=== PATIENT | male | born 1980 | race Caucasian/White ===

== ENCOUNTER 2023-04-07 15:07 | Outpatient (OUT) | payer OTHER, SELFPAY ==
--- NOTE | 2023-04-07 15:55 | CONS_ITS ---
CONSULTATION DATE: ??04/07/2023 TO:? Ganga Pastrana M.D. CHIEF COMPLAINT:? Includes severe mid back/upper back pain. HISTORY:? He reports the pain as being 5-7/10 pain, sharp in character with a pressure component.? It has gotten worse over the last 10 days after he was doing really vigorous activity.? This happened approximately 10 days ago.? Since that time, his pain has been gradually improving, but he still reports it does alter his quality of life, level of functioning and his sleep pattern, but he reports improvement.? Denies any change in bowel and bladder habits or new sensorimotor changes in the lower extremities. EXAM:? His examination is notable for the patient having no clinical radiculopathy or myelopathy involving his lower extremities.? He had no pain with thoracolumbar facet joint loading maneuvers.? He had a moderate amount of myofascial spasm involving the lower thoracic iliocostalis muscle.? He had nothing to suggest compression fracture on clinical exam today.? IMPRESSION:? Our impression is patient appears to have chronic pain, recent flare secondary to thoracic sprain/strain type injury.? RECOMMENDATIONS:? At this point, I recommend continuing with his current regimen of tramadol 50 mg t.i.d. which he takes infrequently, Flexeril 10 mg at h.s. and diclofenac 75 b.i.d.? I have instructed him to increase his Flexeril as tolerated and if needed over the next 7-10 days, until his pain symptoms in his lower thoracic area improve.? We will see him back in the office in one month?s time or sooner if needed. As part of providing excellent, safe, comprehensive care, the following was completed at our patient's visit: 1. A medication reconciliation and review to ensure accurate knowledge of current/active medications, including asking our patients to inform us about any [id number] medications or herbal remedies/nutritional supplements/alternative remedies. 2. A review to specifically ensure our patients have had annual screening for: elevated body mass index (BMI, see intake chart for exact total), tobacco use, screening for depression, and screening for unhealthy alcohol use.? When screening is concerning, patients are provided with education and the specific recommendation to discuss the concerning health issue and treatment options with their primary care provider. GISELLE
== END 2023-04-07 15:08 | disposition home or self-care (01) ==
LOC: PM 15:15
PROVIDERS: PCP Family Medicine; Visit Provider Anesthesiology Pain Medicine
DX: G89.29 Other chronic pain (principal); S23.3XXA Sprain of ligaments of thoracic spine, initial encounter
CPT/HCPCS: G0463

== ENCOUNTER 2023-07-07 15:21 | Outpatient (OUT) | payer OTHER, SELFPAY ==
--- NOTE | 2023-07-07 15:29 | P.CN_ITS ---
Consult Note: HPI Data of Consult Patient: known to practice within the last 3 years Requesting Physician: DEJAH GARCIA NP Primary Care Provider: VIGNESH PRAKASH Consult Narrative Reason for consult: f/u Narrative: Alonzo campo pleasant 42 year old male presents for evaluation and management of chronic low back pain. Today pain 3/10. Pain and muscle cramps have worsened over the last week, feels medication regimen works well. Not interested in additional lumbar RFAs at this time cc:: CC: DEJAH GARCIA NP Review of Systems ROS Status of ROS 10 or more systems reviewed and unremarkable except as noted in history and below Musculoskeletal Reports: back pain PFSH PFS Medical History Meds Home Medications and Allergies Home Medications Medication Instructions Recorded Confirmed Type cyclobenzaprine 10 mg tablet 10 mg PO DAILY PRN muscle spasm 05/27/23 Rx #30 tabs diclofenac sodium 75 mg 75 mg PO BID PRN pain #60 tabs 05/27/23 Rx tablet,delayed release Exam Constitutional Documenting provider has reviewed patient's vital signs: yes Common normals: no apparent distress, oriented x3, healthy appearing, alert and well nourished General appearance: cooperative HENMT Common normals: normocephalic, hearing grossly normal bilaterally and moist oral mucous membranes Head and scalp: normocephalic Eye Common normals: PERRL Pupil: PERRL Neck & C-Spine Common normals: full ROM General: normal visual inspection Chest Common normals: inspection of chest normal Respiratory Common normals: normal respiratory effort, no retractions and no use of accessory muscles Back & Pelvis Lumbar spine/lower back: ROM limited, pain with ROM, lumbar spinal tenderness and paraspinal muscle tenderness Sacroiliac joints: SI joints normal Other: predominately axial low back pain without radiculopathy Neuro Common normals: oriented x3, CN's II-XII intact bilaterally, moves all extremities, no focal motor deficits, no sensory deficits noted and deep tendon reflexes 2+ bilaterally Sensorium/orientation: alert Motor exam: strength 5/5 throughout and no movement abnormalities noted Psych Common normals: mental status grossly normal, thought process normal, cooperative, affect normal, speech normal and activity/motor behavior normal Speech: normal speech Thought process: normal thought process Results Additional Findings Additional findings: I have checked an [place]AR[place] report on this patient today and there are no aberrancies noted in the prescribing history.?? A drug screen was completed and reviewed within the last year, and if there has not been a drug screen completed we ordered one today to monitor higher risk, state monitored pain medication use. As part of providing excellent, safe, comprehensive care, the following was completed at our patient's visit: 1. A medication reconciliation and review to ensure accurate knowledge of current/active medications, including asking our patients to inform us about any nymr-rri-ktrjoes medications or herbal remedies/nutritional supplements/alternative remedies. 2. A review to specifically ensure our patients have had annual screening for: elevated body mass index (BMI), tobacco use, screening for depression, and screening for unhealthy alcohol use. When screening is concerning, patients are provided with education and the specific recommendation to discuss the concerning health issue and treatment options with their primary care provider. Assessment and Plan Assessment and Plan (1) Chronic, continuous use of opioids: Assessment and Plan: I have refilled the patient's opioid prescriptions at the above noted dose and schedule.? I feel these medications are improving the patient's quality of life and allow them to tolerate activities of daily living as well as participate in recreational activity.? The patient does not report intolerable side effects. The patient is NOT opioid naive and non-pharmacologic and non-opioid treatment has failed to significantly relieve the patient's pain and improve functionality. The patient has a diagnosis that is related to a somatic or visceral pain etiology. ? ?? I reviewed with the patient the potential risks and side effects with the use of? opioid medications including but not limited to respiratory depression,? sedation, and even . I verified the patient has access to naloxone should? these effects occur. I advised the patient to avoid the use of any other? sedation substances including alcohol, THC, and benzodiazepines while? taking opioid medications due to the risk of compounding side effects and? detrimental outcomes. 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 drug screen, and opioid start talking forms. The patient was advised to let? their family know they had Naloxone in case they would need to administer? the medication.? ?? (2) Lumbar spondylosis: (3) Obesity: Assessment and Plan: The patient was counseled that proper dietary changes and consistent participation in a home exercise plan can lead to weight loss. Weight loss can help to improve functionality in patients with chronic pain.? Plan continue current medications, can increase flexeril to 10mg BID PRN f/u 3 months
== END 2023-07-07 15:22 | disposition home or self-care (01) ==
PROVIDERS: PCP Family Medicine; Visit Provider Nurse Practitioner
DX: M47.816 Spondylosis without myelopathy or radiculopathy, lumbar region (principal); E66.9 Obesity, unspecified; Z79.891 Long term (current) use of opiate analgesic
CPT/HCPCS: G0463

== ENCOUNTER 2023-10-06 15:16 | Outpatient (OUT) | payer OTHER, SELFPAY ==
--- NOTE | 2023-10-06 15:38 | PM.CN ---
Consult Note: HPI Data of Consult Patient: known to practice within the last 3 years Requesting Physician: Jen Goddard NP Primary Care Provider: VIGNESH PRAKASH Consult Narrative Reason for consult: f/u Narrative: Alonzo campo pleasant 42 year old male presents for evaluation and management of chronic low back pain without radiculopathy. Today rating pain 2-3/10 worse on the right lower lumbar spine than left. Patient finds great benefit from current medication regimen without side effects. cc:: CC: Jen Goddard NP Review of Systems ROS Status of ROS 10 or more systems reviewed and unremarkable except as noted in history and below Musculoskeletal Reports: back pain PFSH PFSH Medical History Lumbar spondylosis ?M47.816 - Spondylosis without myelopathy or radiculopathy, lumbar region (ICD-10) Meds Home Medications and Allergies Home Medications Medication Instructions Recorded Confirmed Type cyclobenzaprine 10 mg tablet 10 mg PO DAILY PRN muscle spasm 05/27/23 07/08/23 Rx #30 tabs diclofenac sodium 75 mg 75 mg PO BID PRN pain #60 tabs 05/27/23 07/08/23 Rx tablet,delayed release lisinopril 5 mg tablet 5 mg PO DAILY 07/08/23 07/08/23 History tramadol 50 mg tablet 50 mg PO TID 07/08/23 07/08/23 History cyclobenzaprine 10 mg tablet 10 mg PO BID PRN muscle spasm #60 08/12/23 Rx tabs tramadol 50 mg tablet 50 mg PO TID PRN pain #90 tabs 08/12/23 Rx Allergies Allergy/AdvReac Type Severity Reaction Status Date / Time Penicillins Allergy Unknown Verified 07/08/23 07:37 Exam Constitutional Documenting provider has reviewed patient's vital signs: yes Common normals: no apparent distress, oriented x3, healthy appearing, alert and well nourished General appearance: cooperative HENMT Common normals: normocephalic, hearing grossly normal bilaterally and moist oral mucous membranes Head and scalp: normocephalic Eye Common normals: PERRL Pupil: PERRL Neck & C-Spine Common normals: full ROM General: normal visual inspection Chest Common normals: inspection of chest normal Respiratory Common normals: normal respiratory effort, no retractions and no use of accessory muscles Back & Pelvis Lumbar spine/lower back: ROM limited, pain with ROM, lumbar spinal tenderness and paraspinal muscle tenderness Sacroiliac joints: SI joints normal Other: predominately axial low back pain without radiculopathy Extremity Common normals: normal to inspection and full ROM Neuro Common normals: oriented x3, CN's II-XII intact bilaterally, moves all extremities, no focal motor deficits, no sensory deficits noted and deep tendon reflexes 2+ bilaterally Sensorium/orientation: alert Motor exam: strength 5/5 throughout and no movement abnormalities noted Psych Common normals: mental status grossly normal, thought process normal, cooperative, affect normal, speech normal and activity/motor behavior normal Speech: normal speech Thought process: normal thought process Results Additional Findings Additional findings: I have checked an OAR[facility] report on this patient today and there are no aberrancies noted in the prescribing history.?? A drug screen was completed and reviewed within the last year, and if there has not been a drug screen completed we ordered one today to monitor higher risk, state monitored pain medication use. As part of providing excellent, safe, comprehensive care, the following was completed at our patient's visit: 1. A medication reconciliation and review to ensure accurate knowledge of current/active medications, including asking our patients to inform us about any [id number] medications or herbal remedies/nutritional supplements/alternative remedies. 2. A review to specifically ensure our patients have had annual screening for: elevated body mass index (BMI), tobacco use, screening for depression, and screening for unhealthy alcohol use. When screening is concerning, patients are provided with education and the specific recommendation to discuss the concerning health issue and treatment options with their primary care provider. Assessment and Plan Assessment and Plan (1) Lumbar spondylosis: (2) Chronic, continuous use of opioids: Assessment and Plan: I feel these medications are improving the patient's quality of life and allow them to tolerate activities of daily living as well as participate in recreational activity.? The patient does not report intolerable side effects. The patient is NOT opioid naive and non-pharmacologic and non-opioid treatment has failed to significantly relieve the patient's pain and improve functionality. The patient has a diagnosis that is related to a somatic or visceral pain etiology. ? ?? I reviewed with the patient the potential risks and side effects with the use of? opioid medications including but not limited to respiratory depression,? sedation, and even . I verified the patient has access to naloxone should? these effects occur. I advised the patient to avoid the use of any other? sedation substances including alcohol, THC, and benzodiazepines while? taking opioid medications due to the risk of compounding side effects and? detrimental outcomes. 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 drug screen, and opioid start talking forms. The patient was advised to let? their family know they had Naloxone in case they would need to administer? the medication.? ?? A drug screen was completed within the last year, and no aberrancies were noted regarding their use of controlled substances. The patient understands they are subject to the terms and conditions of the pain contract that they have signed. ? ?? I have checked an OAR[facility] report on this patient today and there are no aberrancies noted in the prescribing history.? Plan continue current medications, tolerating well without side effects lumbar spine xray with flexion and extension f/u 3 months, sooner if needed.
== END 2023-10-06 15:17 | disposition home or self-care (01) ==
LOC: PM 15:19
PROVIDERS: PCP Family Medicine; Visit Provider Nurse Practitioner
DX: M47.816 Spondylosis without myelopathy or radiculopathy, lumbar region (principal); Z79.891 Long term (current) use of opiate analgesic
CPT/HCPCS: G0463

== ENCOUNTER 2023-10-13 09:20 | Outpatient (OUT) | payer OTHER, SELFPAY ==
--- OUTSIDE RECORDS SUMMARY | 2023-10-13 09:27 | XMS_ITS | CCD ---
Author Name Unknown Address [address] [place] [address] Organization [facility] Care Team Providers Care Tip Length Checker Name Role Phone LAKSHMIPATHY ., NARENDRANATH Admitting Sara vailable LAKSHMIPATHY ., OSITO Attending Sara vailable [place], DR MEDELLIN Primary Care Unavailable ECHEVARRIA ., DR PAPA Martin Admitting Unavailable ECHEVARRIA ., DR PAPA Martin Attending Unavailable HOUSE, DR MEDELLIN Primary Care Unavailable CORBIN ., SHAHID Consulting Unavailable ECHEVARRIA ., DR PAPA Martin Admitting Unavailable ECHEVARRIA ., DR PAPA Martin Attending Unavailable HOUSE, DR MEDELLIN Primary Care Unavailable CORBIN ., SHAHID Consulting Unavailable ECHEVARRIA ., DR PAPA Martin Admitting Unavailable ECHEVARRIA ., DR PAPA Martin Attending Unavailable HOUSE, DR MEDELLIN Primary Care Unavailable CORBIN ., SHAHID Consulting Unavailable ECHEVARRIA ., DR PAPA Martin Admitting Unavailable ECHEVARRIA ., DR PAPA Martin Attending Unavailable HOUSE, DR MEDELLIN Primary Care Unavailable CORBIN ., SHAHID Consulting Unavailable Allergies Allergy Classification Reported Allergen(s) Allergy Type Date of Onset Reaction(s) Facility (1 source) Penicillins Drug allergy (disorder) 11-16-2016 [facility] Repository Problems Active Problems Problem Classification Problem Date Documented Date Episodic/Chronic Other nervous system disorders (1 source) Other chronic pain; Translations: [OTHER CHRONIC PAIN] Onset: 01-07-2023 Chronic Spondylosis; intervertebral disc disorders; other back problems (2 sources) Spondylosis without myelopathy or radiculopathy, lumbar region; Translations: [Other intervertebral disc degeneration, lumbar region] Onset: 03-03-2022 Chronic Spondylosis; intervertebral disc disorders; other back problems (4 sources) Muscle spasm of back; Translations: [MUSCLE SPASM OF BACK] Onset: 12-30-2022 Episodic Unclassified (1 source) LOW BACK PAIN, UNSPECIFIED; Translations: [LOW BACK PAIN, UNSPECIFIED] Onset: 01-07-2023 Past or Other Problems Problem Classification Problem Date Documented Da te Episodic/Chronic Other connective tissue disease (4 sources) Bicipital tendinitis, left shoulder; Translations: [BICIPITAL TENDINITIS LEFT SHOULDER] Onset: 09-23-2022 Episodic Encounters Encounter Date Encounter Type Care Provider Facility Start: 03-31-2023 ambulatory PATIENCEIMER GREEN EDMOND Cantu Facility: Start: 12-30-2022 End: 12-31-[address] PAPA ECHEVARRIA . Facility:[facility] Start: 09-23-2022 End: 09-24-[address] PAPA ECHEVARRIA . Facility:[facility] Start: 06-17-2022 End: 06-18-[address] PAPA ECHEVARRIA . Facility:[facility] Start: 02-25-2022 End: 02-26-[address] PAPA ECHEVARRIA . Facility: Payers Date Payer Category Payer Unknown [id number] 2.16.84 [id number] 1980 Unknown [id number] 2.16.84 [id number] 1980 Unknown [id number] 2.16.84 [id number] 1980 Unknown [id number] 2.16.84 [id number] 1980 Unknown [id number] 2.16.84 [id number] 1959 Private Health Insurance [id number] 1959 Unknown [id number] Consultation note 12-30-2022 Note Date & Type Note Facility 12-30-2022 Note CONSULTATION PROCEDURE DATE: 12/30/2022 PREOPERATIVE DIAGNOSIS: Right lumbar spasm. POSTOPERATIVE DIAGNOSIS: Right lumbar spasm. PROCEDURE: Right lumbar trigger point injection. Subsequent to obtaining informed consent, the patient was placed in the upright standing forward flexion position. Alcohol prep was used to sterilize the site. A 25 gauge needle with 0.125% Marcaine and 40 mg of Kenalog was placed to rest inside the trigger zone. Negative heme. Medication was injected in a slow fan-like pattern, and the patient tolerated the procedure well. He will be followed up in the clinic. [facility] Consultation note 12-30-2022 Note Date & Type Note Facility 12-30-2022 Note CONSULTATION CONSULTATION DATE: 12/30/2022 HISTORY: This is a 42-year-old gentleman who returns to the clinic for a three month follow up for his chronic lower back pain. Today, he is complaining of pain 4/10, described as pressure. He has an area in his right lower lumbar area that he describes as pressure type and achy, and it is bothersome with twisting, pushing, pulling and lifting heavy objects. Medications include tramadol 50 mg t.i.d., diclofenac 75 mg b.i.d., Flexeril 10 mg q.h.s. and vitamins. Patient's REVIEW OF SYSTEMS / PAST MEDICAL HISTORY / ALLERGIES and IMAGES have been reviewed and noted on the chart. PHYSICAL EXAM: VITAL SIGNS: Blood pressure is 142/86. Heart rate is 97. Temperature is 97.7. He is 6'2 , weighs 127 kg. GENERAL IMPRESSION: Pleasant, appropriate, in no acute distress. FOCUSED EXAM - BACK: Range of motion is functional in lateral rotation and flexion/extension. Paravertebral muscles are spasmodic to the right lower lumbar area. Trigger point identified. Compression on this area reproduces patient's pain pattern. MUSCULOSKELETAL: Motor is intact, 5/5 bilaterally. Patient walks with a stable gait with no assistive device. NEUROLOGICAL: Radicular sensory is intact. Negative polyneuropathy. Bilateral lower extremity reflexes are 2/2. DIAGNOSIS: Right lumbar erector spinae spasm, chronic lower back pain. PLAN: The patient will receive a right lumbar erector spinae trigger point injection, which he does consent to in the office. We will refill his tramadol 50 mg t.i.d. U-Tox also will be done in the clinic. We will see the patient in three months' time, unless otherwise indicated. Patient agrees with this plan. [facility] Consultation note 09-23-2022 Note Date & Type Note Facility 09-23-2022 Note CONSULTATION CONSULTATION DATE: 09/23/2022 HISTORY OF PRESENT ILLNESS: This is a 41-year-old gentleman returning to the clinic for a three month follow up for chronic lower back pain and left shoulder pain. Today, he is complaining of left shoulder pain, describes it as a burn and a stab. It is 3/10 at rest, will increase to 6/10 with repetitive motions at work. Twisting, stairs, lifting and lateral side swiping with his left shoulder aggravates his pain. He is uses an inversion table which decreases his lower back pain. Medications include tramadol 50 mg t.i.d., diclofenac 75 mg b.i.d. and Flexeril 10 mg q.h.s. At his last office visit on 06/17/2022, the patient received a left bicipital head tendon injection which afforded him 100% relief for six weeks. He feels that the pain is returning at this time. Patient's REVIEW OF SYSTEMS / PAST MEDICAL HISTORY / ALLERGIES and IMAGES have been reviewed and they are noted on the chart. PHYSICAL EXAM: VITAL SIGNS: Blood pressure 125/75, heart rate is 70. Temperature is 97.8. He is 6'2 and weighs 126 kg. GENERAL APPEARANCE: Pleasant, appropriate, no acute distress. FOCUSED EXAM - SHOULDER - MUSCULOSKELETAL: Motor is intact, 5/5 bilaterally. Point tenderness along the lateral aspect of the left bicipital tendon sheath upon compression. Compression reproduces the patient's pain symptomatology. Range of motion is intact to his shoulder in lateral raises and adduction and abduction. Bilateral muscle tone is good. BACK: Range of motion is functional in lateral rotation and flexion/extension. Paravertebral muscles are non-spasmodic. Compression along the lower lumbar facets does not reproduce spinal axial pain. Srinivasa's point is non-tender. BILATERAL LOWER EXTREMITIES: No vasomotor weakness. Radicular sensory is intact. DIAGNOSIS: Left bicipital head tendonitis, chronic lower back pain. PLAN: Patient will receive an in-office injection, left bicipital head tendon sheath injection, which he does consent to. We will refill his tramadol at 50 mg t.i.d. and maintain him on the diclofenac and Flexeril at the set dose and frequency. Patient will be followed up in three months' time unless otherwise indicated. [facility] Consultation note 09-23-2022 Note Date & Type Note Facility 09-23-2022 Note CONSULTATION PROCEDURE DATE: 09/23/2022 PREOPERATIVE DIAGNOSIS: Left bicipital sheath tendonitis. POSTOPERATIVE DIAGNOSIS: Left bicipital sheath tendonitis. PROCEDURE: Left bicipital head tendon injection. Subsequent to obtaining informed consent, the patient was placed in an upright sitting position. Left upper extremity was placed in a slight adduction. Alcohol prep was used to sterilize the site. A 25 gauge needle with 0.125% Marcaine and 40 mg of Kenalog was placed to rest inside the bicipital tendon sheath. Negative heme. Medication was injected in a slow, fan-like pattern, and patient tolerated the procedure. Patient will be followed up in the clinic in three months. Following the injection, patient reported 100% relief of pain. [facility] Consultation note 06-17-2022 Note Date & Type Note Facility 06-17-2022 Note CONSULTATION PROCEDURE DATE: 06/17/2022 PREOPERATIVE DIAGNOSIS: Left biceps head tendonitis. POSTOPERATIVE DIAGNOSIS: Left biceps head tendonitis. PROCEDURE: Left biceps head injection. Subsequent to obtaining informed consent, the patient was placed in the upright sitting neutral position. Alcohol prep was used to sterilize the site. A 25 gauge needle with 0.125% Marcaine and 40 mg of Kenalog was placed to rest inside the biceps head tendon. Negative heme. Medication was injected in a slow and steady fashion. Patient tolerated the procedure well with no overt complications. [facility] Consultation note 06-17-2022 Note Date & Type Note Facility 06-17-2022 Note CONSULTATION CONSULTATION DATE: HISTORY OF PRESENT ILLNESS: This is an active, 41-year-old male returning to the clinic for a three month follow up. The patient does have chronic lower back pain and mid back pain. Today, his main complaint is left shoulder pain, which he reports a level of 4/10. His back pain level is 2/10 and overall is feeling well. Patient stated repetitive movements at work with lifting boxes created this left shoulder pain, and he is inquiring about a possible x-ray. Patient states he has no upper extremity weakness, but pain increases with lateral raises and any physical activity to his left shoulder. He does apply heat daily which decreases his pain. In addition to lifting, pushing, pulling and housework activity aggravates his shoulder. Current medications include tramadol 50 mg t.i.d., diclofenac 75 mg b.i.d. and Flexeril 10 mg q.h.s. The patient does report he has an upcoming PCP appointment for a yearly wellness check. Patient's REVIEW OF SYSTEMS / PAST MEDICAL HISTORY / ALLERGIES and IMAGES have been reviewed and they are noted on the chart. PHYSICAL EXAM: Blood pressure 139/82, heart rate is 98. Temperature is 97.3. He is 6'2 and weighs 128.7 kilos. GENERAL APPEARANCE: Pleasant, appropriate, in no acute distress. FOCUSED EXAM - MUSCULOSKELETAL: Bilateral upper extremities with motor 5/5. Range of motion is intact in adduction, abduction and lateral raise to left upper extremity. No crepitus is palpated at the joint of the left shoulder. Pain not reproduced with inferior or posterior tenderness. Upon compression of left biceps tendon, positive jump response which reproduces the patient's pain symptomatology. BACK: Range of motion is functional in lateral rotation and flexion/extension. Minimal reproduction of spinal axial pain noted over the L4-L5 facets, right greater than left. Tone is palpated as well, indicative of facet arthropathy, lumbar spondylosis. Srinivasa's point non-tender. FABERs and compression are negative. NEUROLOGICAL: Radicular sensory is intact upper and lower extremities. Negative polyneuropathy. DIAGNOSIS: Left biceps head tendonitis, chronic lower back pain. PLAN: Patient will receive a left biceps head tendon steroid injection in the clinic today, which he consents to. Education was given regarding the use of a menthol heat rub as well as heat to the area. Supportive measures with intermittent rest were explained as well. A refill for his tramadol 50 mg t.i.d. will be sent to the pharmacy. Vitamin and nutrition importance were discussed. Patient will follow up in the office in three months' time unless otherwise indicated. [facility] Consultation note 02-25-2022 Note Date & Type Note Facility 02-25-2022 Note CONSULTATION CONSULTATION DATE: 02/25/2022 This is a pleasant 41-year-old gentleman who returns to the clinic for a three-month follow-up for his chronic lower back pain. His last office visit on 11/25/2021 which at that time he felt he was doing well and had low rates of pain of 2 out of 10. He was similar today. His last procedure was lumbar radiofrequency ablations in May of 2020. The patient feel he is still reaping benefits from that. With the weather change recently, the patient has increased is outdoor activities and feel has recently overdone it. Activities such as twisting, turning, pulling, standing and walking and lifting aggravate his pain. She does use heat and his inversion table which give him pain relief. The patient feels that he needs to be careful with how much he does in one time and if he is more cognizant of that, then his pain would not increase. Current medications include Tramadol 50 mg t.i.d., diclofenac 75 mg b.i.d., Flexeril 5 mg q.h.s. and multivitamin. He denes any new radicular pain or vasomotor changes. REVIEW OF SYSTEMS, PAST MEDICAL HISTORY, ALLERGIES AND IMAGES: Have been reviewed and noted in the chart. PHYSICAL EXAM: VITAL SIGNS: Blood pressure 135/87, heart rate is 88, temperature is 98.2. Height is 6'2 , weighs 131.7 kg. GENERAL APPEARANCE: Pleasant, appropriate, in no acute distress. FOCUSED EXAM: BACK: Range of motion is within functional limits in lateral rotation and flexion/extension. No reproduction of spinoaxial pain to direct compression along the posterior elements of the lumbar facets with L2, L3 and L4, L5. Srinivasa's point is nontender and Toni's and compression test is negative. Paravertebral muscles are taut with areas of spasmodic muscle noted bilaterally. Reproduction of the patient's pattern to compression along those trigger areas. MUSCULOSKELETAL: Motor is intact, 4 out of 5 bilaterally. The patient has good muscle tone. NEUROLOGICAL: Radicular sensory is intact. Negative polyneuropathy. +2 bilateral patellar reflexes. DIAGNOSIS: Bilateral paravertebral spasms, lumbar spondylosis, lumbar degenerative disk. PLAN: We will refill his diclofenac 75 mg b.i.d. and Flexeril 5 mg q.h.s. He was encouraged to use his inversion table 4-5 times weekly, if not daily. I did stress the use of multivitamin regimen include magnesium as well as using a menthol heat rub mixed with Voltaren gel. Stretches and exercise was encouraged as well. The patient states understanding and agrees with the plan of care and we will see him in 3 months' time unless otherwise indicated. [facility] Signed and Approved by: SHAHID CORBIN . 03/04/2022 17:08:00 [facility] Summary Purpose Family History No Family History Records Found Advance Directives No Advanced Directives Records Found Additional Source Comments (unrecognized sect ion and content) No Status Records Found INFORMATION SOURCE (unrecogn ized section and content) DATE CREATED AUTHOR 01/08/2023 [facility] FOR RECORDS PERTAINING TO PATIENTS WHO ARE OR HAVE BEEN ENROLLED IN A CHEMICAL DEPENDENCY/SUBSTANCEABUSE PROGRAM, SOME INFORMATION MAY BE OMITTED. This clinical summary was aggregated from multiple sources. Caution should be exercised in using it in the provision of clinical care. This summary normalizes information from multiple sources, and as a consequence, information in this document may materially change the coding, format and clinical context of patient data. In addition, data may be omitted in some cases. CLINICAL DECISIONS SHOULD BE BASED ON THE PRIMARY CLINICAL RECORDS. [facility]. provides no warranty or guarantee of the accuracy or completeness of information in this document.
--- NOTE | 2023-10-13 09:29 | XR_ITS ---
[place] [id number] Patient Name: JAS PATTERSON MRN: [id number] date: 1980 Sex: M Assigned Patient Location: [facility] Current Patient Location: Accession/Order Number: [id number] Exam Date: 10/13/2023 09:35 Report Date: 10/15/2023 13:14 At the request of: NADER SCHAEFER Procedure: XR lumbar spine 6V w bending EXAM: XR lumbar spine 6V w bending HISTORY: lumbar spondylosis COMPARISON: None. FINDINGS/IMPRESSION: 1. No acute fracture or dislocation 2. Vertebral body height is preserved. 3. Mild retrolisthesis of T12 on L1 measuring 3 mm in extension and reducing in flexion. 4. Retrolisthesis of L3 on L4 measuring 6 mm in extension and 3 mm in flexion. 5. Overlying bowel gas pattern is nonspecific and nonobstructive. Mild degeneration of the sacroiliac joints. 6. Mild disc degeneration at L4-L5 and L5-S1. Electronically authenticated by: GAURI BROOKS Date: 10/15/2023 13:14
== END 2023-10-13 09:21 | disposition home or self-care (01) ==
LOC: RAD 09:23
PROVIDERS: PCP Family Medicine; Visit Provider Nurse Practitioner
DX: M47.816 Spondylosis without myelopathy or radiculopathy, lumbar region (principal)
CPT/HCPCS: 72114

== ENCOUNTER 2024-01-05 15:18 | Outpatient (OUT) | payer OTHER, SELFPAY ==
--- NOTE | 2024-01-05 15:51 | PM.CN ---
Consult Note: HPI Data of Consult Patient: known to practice within the last 3 years Requesting Physician: Jen Goddard NP Primary Care Provider: VIGNESH PRAKASH Consult Narrative Reason for consult: f/u Narrative: Alonzo Coy a pleasant 42 year old male presents for evaluation and management of chronic low back pain without radiculopathy. Today rating pain 2-3/10 worse on the right lower lumbar spine than left. Patient finds great benefit from current medication regimen without side effects. recent lumbar xray consistent with lumbar facet arthropathy, lumbar DDD, lumbar spondylolistheses. Patient reporting numbness tingling bilateral upper thighs. negative radiculopathy. Pain increasing to moderate to severe with activity, pushing, pulling, standing, walking, lifting. Pain decreases with sitting, lying, sleeping. cc:: CC: Jen Goddard NP Review of Systems ROS Status of ROS 10 or more systems reviewed and unremarkable except as noted in history and below Musculoskeletal Reports: back pain PFSH PFSH Medical History Lumbar spondylosis ?M47.816 - Spondylosis without myelopathy or radiculopathy, lumbar region (ICD-10) Meds Home Medications and Allergies Home Medications ?Medication ?Instructions ?Recorded ?Confirmed ?Type cyclobenzaprine 10 mg tablet 10 mg PO DAILY PRN muscle spasm 05/27/23 07/08/23 Rx #30 tabs diclofenac sodium 75 mg 75 mg PO BID PRN pain #60 tabs 05/27/23 07/08/23 Rx tablet,delayed release lisinopril 5 mg tablet 5 mg PO DAILY 07/08/23 07/08/23 History tramadol 50 mg tablet 50 mg PO TID 07/08/23 07/08/23 History cyclobenzaprine 10 mg tablet 10 mg PO BID PRN muscle spasm #60 08/12/23 Rx tabs tramadol 50 mg tablet 50 mg PO TID PRN pain #90 tabs 08/12/23 Rx tramadol 50 mg tablet 50 mg PO TID PRN pain #90 tabs 10/31/23 Rx cyclobenzaprine 10 mg tablet 10 mg PO BID PRN muscle spasm #60 12/01/23 Rx tabs diclofenac sodium 75 mg 75 mg PO BID PRN pain #60 tabs 12/01/23 Rx tablet,delayed release tramadol 50 mg tablet 50 mg PO TID PRN pain #90 tabs 12/01/23 Rx Allergies Allergy/AdvReac Type Severity Reaction Status Date / Time Penicillins Allergy Unknown Verified 07/08/23 07:37 Exam Constitutional Documenting provider has reviewed patient's vital signs: yes Common normals: no apparent distress, oriented x3, healthy appearing, alert and well nourished General appearance: cooperative HENMT Common normals: normocephalic, hearing grossly normal bilaterally and moist oral mucous membranes Head and scalp: normocephalic Eye Common normals: PERRL Pupil: PERRL Neck & C-Spine Common normals: full ROM General: normal visual inspection Chest Common normals: inspection of chest normal Respiratory Common normals: normal respiratory effort, no retractions and no use of accessory muscles Back & Pelvis Lumbar spine/lower back: ROM limited, pain with ROM, lumbar spinal tenderness and paraspinal muscle tenderness Sacroiliac joints: SI joints normal Other: predominately axial low back pain without radiculopathy Extremity Common normals: normal to inspection and full ROM Neuro Common normals: oriented x3, CN's II-XII intact bilaterally, moves all extremities, no focal motor deficits, no sensory deficits noted and deep tendon reflexes 2+ bilaterally Sensorium/orientation: alert Motor exam: strength 5/5 throughout and no movement abnormalities noted Psych Common normals: mental status grossly normal, thought process normal, cooperative, affect normal, speech normal and activity/motor behavior normal Speech: normal speech Thought process: normal thought process Results Additional Findings Additional findings: If on a controlled substance or opioids, I have checked an [place]AR[place] report on this patient and there are no aberrancies noted in the prescribing history.??If on a controlled substance or opioid a drug screen was completed and reviewed within the last year, and if there has not been a drug screen completed we ordered one today to monitor higher risk, state monitored pain medication use. As part of providing excellent, safe, comprehensive care, the following was completed at our patient's visit: 1. A medication reconciliation and review to ensure accurate knowledge of current/active medications, including asking our patients to inform us about any [id number]-[id number] medications or herbal remedies/nutritional supplements/alternative remedies. 2. A review to specifically ensure our patients have had annual screening for screening for depression, screening for tobacco use, and screening for unhealthy alcohol use. For concerning screenings had a discussion with the patient, provided patient education, and recommended follow-up with primary care provider when appropriate. If patient noted with a risk of falling, they received education on strength, gait, and balance training to prevent future risk of falling. Assessment and Plan Assessment and Plan (1) Spondylolisthesis: (2) Encounter for long-term use of opiate analgesic: Assessment and Plan: I feel these medications are improving the patient's quality of life and allow them to tolerate activities of daily living as well as participate in recreational activity.? The patient does not report intolerable side effects. The patient is NOT opioid naive and non-pharmacologic and non-opioid treatment has failed to significantly relieve the patient's pain and improve functionality. The patient has a diagnosis that is related to a somatic or visceral pain etiology. ? ?? I reviewed with the patient the potential risks and side effects with the use of? opioid medications including but not limited to respiratory depression,? sedation, and even . I verified the patient has access to naloxone should? these effects occur. I advised the patient to avoid the use of any other? sedation substances including alcohol, THC, and benzodiazepines while? taking opioid medications due to the risk of compounding side effects and? detrimental outcomes. I reviewed the DESULFURIZER OPERATOR, pain treatment agreement, urine? drug screen, and opioid start talking forms. The patient was advised to let? their family know they had Naloxone in case they would need to administer? the medication.? ?? A drug screen was completed within the last year, and no aberrancies were noted regarding their use of controlled substances. The patient understands they are subject to the terms and conditions of the pain contract that they have signed. ? ?? I have checked an OARRS report on this patient today and there are no aberrancies noted in the prescribing history.? (3) Lumbar spondylosis: Plan chronic low back pain, mild to moderate improvement in pain with current medication regimen without side effects f/u 3 months sooner if needed, consider bilateral L3-4 L4-5 facet blocks working towards RFA in the future
== END 2024-01-05 15:19 | disposition home or self-care (01) ==
PROVIDERS: PCP Family Medicine; Visit Provider Nurse Practitioner
DX: M43.10 Spondylolisthesis, site unspecified (principal); Z79.891 Long term (current) use of opiate analgesic
CPT/HCPCS: G0463

== ENCOUNTER 2024-04-05 15:21 | Outpatient (OUT) | payer OTHER, SELFPAY ==
--- NOTE | 2024-04-05 15:21 | P.CN_ITS ---
Consult Note: HPI Data of Consult Patient: known to practice within the last 3 years Requesting Physician: Jen Goddard NP Primary Care Provider: VIGNESH PRAKASH Consult Narrative Reason for consult: f/u Narrative: Alonzo campo pleasant 43 year old male presents for evaluation and management of chronic low back pain without radiculopathy. Today rating pain 2-3/10 worse on the right lower lumbar spine than left. Patient finds great benefit from current medication regimen without side effects. recent lumbar xray consistent with lumbar facet arthropathy, lumbar DDD, lumbar spondylolistheses. Patient reporting numbness tingling bilateral upper thighs. negative radiculopathy. Pain increasing to moderate to severe with activity, pushing, pulling, standing, walking, lifting. Pain decreases with sitting, lying, sleeping. cc:: CC: Jen Goddard NP Review of Systems ROS Status of ROS 10 or more systems reviewed and unremark able except as noted in history and below [facility] Medical History Lumbar spondylosis ?M47.816 - Spondylosis without myelopathy or radiculopathy, lumbar region (ICD-10) Meds Home Medications and Allergies Home Medications ?Medication ?Instructions ?Recorded ?Confirmed ?Type lisinopril 5 mg tablet 5 mg PO DAILY 07/08/23 07/08/23 History cyclobenzaprine 10 mg tablet 10 mg PO BID PRN muscle spasm #60 12/01/23 Rx tabs tramadol 50 mg tablet 50 mg PO TID PRN pain #90 tabs 01/26/24 Rx cyclobenzaprine 10 mg tablet 10 mg PO BID PRN Spasms #60 tabs 02/28/24 Rx diclofenac sodium 75 mg 75 mg PO BID PRN pain #60 tabs 02/28/24 Rx tablet,delayed release tramadol 50 mg tablet 50 mg PO TID PRN pain #90 tabs 02/28/24 Rx tramadol 50 mg tablet 50 mg PO TID PRN pain #90 tabs 03/29/24 Rx Allergies Allergy/AdvReac Type Severity Reaction Status Date / Time Penicillins Allergy Unknown Verified 07/08/23 07:37 Exam Constitutional Documenting provider has reviewed patient's vital signs: yes Common normals: no apparent distress, oriented x3, healthy appearing, alert and well nourished General appearance: cooperative HENMT Common normals: normocephalic, hearing grossly normal bilaterally and moist oral mucous membranes Head and scalp: normocephalic Eye Common normals: PERRL Pupil: PERRL Neck & C-Spine Common normals: full ROM General: normal visual inspection Chest Common normals: inspection of chest normal Respiratory Common normals: normal respiratory effort, no retractions and no use of accessory muscles Back & Pelvis Lumbar spine/lower back: ROM limited, pain with ROM, lumbar spinal tenderness and paraspinal muscle tenderness Sacroiliac joints: SI joints normal Other: predominately axial low back pain without radiculopathy Extremity Common normals: normal to inspection and full ROM Neuro Common normals: oriented x3, CN's II-XII intact bilaterally, moves all extremities, no focal motor deficits, no sensory deficits noted and deep tendon reflexes 2+ bilaterally Sensorium/orientation: alert Motor exam: strength 5/5 throughout and no movement abnormalities noted Psych Common normals: mental status grossly normal, thought process normal, cooperative, affect normal, speech normal and activity/motor behavior normal Speech: normal speech Thought process: normal thought process Results Additional Findings Additional findings: If on a controlled substance or opioids, I have checked an OARRS report on this patient and there are no aberrancies noted in the prescribing history.??If on a controlled substance or opioid a drug screen was completed and reviewed within the last year, and if there has not been a drug screen completed we ordered one today to monitor higher risk, state monitored pain medication use. As part of providing excellent, safe, comprehensive care, the following was completed at our patient's visit: 1. A medication reconciliation and review to ensure accurate knowledge of current/active medications, including asking our patients to inform us about any emuj-bto-wyrzzuh medications or herbal remedies/nutritional supplements/alternative remedies. 2. A review to specifically ensure our patients have had annual screening for screening for depression, screening for tobacco use, and screening for unhealthy alcohol use. For concerning screenings had a discussion with the patient, provided patient education, and recommended follow-up with primary care provider when appropriate. If patient noted with a risk of falling, they received edu cation on strength, gait, and balance training to prevent future risk of falling. Assessment and Plan Assessment and Plan (1) Spondylolisthesis: (2) Encounter for long-term use of opiate analgesic: Assessment and Plan: I feel these medications are improving the patient's quality of life and allow them to tolerate activities of daily living as well as participate in recreational activity.? The patient does not report intolerable side effects. The patient is NOT opioid naive and non-pharmacologic and non-opioid treatment has failed to significantly relieve the patient's pain and improve functionality. The patient has a diagnosis that is related to a somatic or visceral pain etiology. ? ?? I reviewed with the patient the potential risks and side effects with the use of? opioid medications including but not limited to respiratory depression,? sedation, and even . I verified the patient has access to naloxone should? these effects occur. I advised the patient to avoid the use of any other? sedation substances including alcohol, THC, and benzodiazepines while? taking opioid medications due to the risk of compounding side effects and? detrimental outcomes. I reviewed the CHARGE ENTRY CLERK, pain treatment agreement, urine? drug screen, and opioid start talking forms. The patient was advised to let? their family know they had Naloxone in case they would need to administer? the medication.? ?? A drug screen was completed within the last year, and no aberrancies were noted regarding their use of controlled substances. The patient understands they are subject to the terms and conditions of the pain contract that they have signed. ? ?? I have checked an OARRS report on this patient today and there are no aberrancies noted in the prescribing history.? (3) Lumbar spondylosis: Plan chronic low back pain, mild to moderate improvement in pain with current medication regimen without side effects f/u 3 months sooner if needed, consider bilateral L3-4 L4-5 facet blocks working towards RFA in the future
--- OUTSIDE RECORDS SUMMARY | 2024-04-05 15:29 | XMS_ITS | CCD ---
Author Organization [facility] Care Team Providers Care Agricultural Extension Specialist Name Role Phone LAKSHMIPATHY ., NARENDRANATH Admitting Sara vailable LAKSHMIPATHY ., NARENDFRANKIEATH Attending Sara vailable EPHRATA, DR MEDELLIN Primary Care Unavailable ECHEVARRIA ., [...] Care Unavailable CORBIN ., SHAHID Consulting Unavailable Óscar AMAYA, Lior Villafuerte Attending Unavailable HOUSE, VIGNESH Dawkins Primary Care Unavailable Allergies Allergy Classification Reported Allergen(s) Allergy Type Date of Onset Reaction(s) Facility (1 source) Penicillins Drug allergy (disorder) 11-16-2016 [facility] Repository (1 source) Penicillin; Translations: [penicillin] Drug Allergy [facility] Repository Problems Active Problems Problem Classification Problem [...] [BICIPITAL TENDINITIS LEFT SHOULDER] Onset: 09-23-2022 Episodic Results Test Name Value Interpretation Reference Range Facil ity Outside Recordson 11-01-2023 Outside Records [id number]#1.00OT [facility] Patient Handouton 11-01-2023 Patient Handout [id number]#1.00OT [facility] Patient Provided Health Data on 11-01-2023 Patient Provided Health Data [id number]#1.00OT [facility] Encounters Encounter Date Encounter Type Care Provider Facility Start: 10-31-2023 End: 11-01-2023 ambulatory Lior Cantrell MD Facility:[facility] Start: 03-31-2023 ambulatory OSITO PRUITT . Facility:[facility] Start: 12-30-2022 End: 12-31-[address] PAPA ECHEVARRIA . Facility:[facility] Start: 09-23-2022 End: 09-24-[address] PAPA ECHEVARRIA . Facility:[facility] Start: 06-17-2022 End: 06-18-[address] PAPA ECHEVARRIA . Facility:[facility] Start: 02-25-2022 End: 02-26-[address] PAPA ECHEVARRIA . Facility: Payers Date Payer Category Payer Unknown [id number] 2023 Private Health Insurance [id number] 1980 Unknown [id number] 2.16.84 [id number] 1980 Unknown [id number] .16.84 [id number] 1980 Unknown [id number] .16.84 [id number] 1980 Unknown [id number] 2.16.84 [id number] 1980 Unknown [id number] 2.16.84 [id number] 1980 Unknown [id number] 2.16.8 [id number] 1959 Private Health Insurance [id number] 1959 Unknown [id number] Consultation note 12-30-2022 Note Date & Type [...] be followed up in the clinic. [facility] Consultation note 12-30-2022 Note Date & Type [...] indicated. Patient agrees with this plan. [facility] Consultation note 09-23-2022 Note Date & Type [...] three months' time unless otherwise indicated. [facility] Consultation note 09-23-2022 Note Date & Type [...] patient reported 100% relief of pain. [facility] Consultation note 06-17-2022 Note Date & Type [...] procedure well with no overt complications. [facility] Consultation note 06-17-2022 Note Date & Type [...] three months' time unless otherwise indicated. [facility] Consultation note 02-25-2022 Note Date & Type [...] in 3 months' time unless otherwise indicated. [facility] Signed and Approved by: SHAHID CORBIN . 03/04/2022 17:08:00 [facility] Summary Purpose Family History No Family History Records FoundNo Family History Records Found Advance Directives No Advanced Directives Records FoundNo Advanced Directives Records Found Additional Source Comments (unrecognized sect ion and content) No Status Records FoundNo Status Records Found INFORMATION SOURCE (unrecogn ized section and content) DATE CREATED AUTHOR 01/08/[address] [facility] DATE CREATED AUTHOR 'S ORGANIZ ATION 11/01/2023 [facility] FOR RECORDS PERTAINING TO PATIENTS WHO ARE [...] BE BASED ON THE PRIMARY CLINICAL RECORDS. [employer]. provides no warranty or guarantee of the accuracy or completeness of information in this document.
== END 2024-04-05 15:22 | disposition home or self-care (01) ==
LOC: PM 15:21
PROVIDERS: PCP Family Medicine; Visit Provider Nurse Practitioner
DX: M43.16 Spondylolisthesis, lumbar region (principal); Z79.891 Long term (current) use of opiate analgesic; M47.816 Spondylosis without myelopathy or radiculopathy, lumbar region
CPT/HCPCS: G0463

== ENCOUNTER 2024-07-05 15:16 | Outpatient (OUT) | payer OTHER, SELFPAY ==
--- NOTE | 2024-07-05 15:39 | PM.CN ---
Consult Note: HPI Data of Consult Patient: known to practice within the last 3 years Requesting Physician: Jen Goddard NP Primary Care Provider: VIGNESH PRAKASH Consult Narrative Reason for consult: f/u Narrative: Alonzo campo pleasant 43 year old male presents for evaluation and management of chronic low back pain without radiculopathy. Today rating pain 2-3/10 worse on the right lower lumbar spine than left. Patient finds great benefit from current medication regimen without side effects. recent lumbar xray consistent with lumbar facet arthropathy, lumbar DDD, lumbar spondylolistheses. Patient reporting numbness tingling bilateral upper thighs. negative radiculopathy. Pain increasing to moderate to severe with activity, pushing, pulling, standing, walking, lifting. Pain decreases with sitting, lying, sleeping. cc:: CC: Jen Goddard NP Review of Systems ROS Status of ROS 10 or more systems reviewed and unremarkable except as noted in history and below Musculoskeletal Reports: back pain PFSH PFSH Medical History Lumbar spondylosis ?M47.816 - Spondylosis without myelopathy or radiculopathy, lumbar region (ICD-10) Meds Home Medications and Allergies Home Medications ?Medication ?Instructions ?Recorded ?Confirmed ?Type lisinopril 5 mg tablet 5 mg PO DAILY 07/08/23 07/08/23 History cyclobenzaprine 10 mg tablet 10 mg PO BID PRN muscle spasm #60 12/01/23 Rx tabs tramadol 50 mg tablet 50 mg PO TID PRN pain #90 tabs 01/26/24 Rx cyclobenzaprine 10 mg tablet 10 mg PO BID PRN Spasms #60 tabs 02/28/24 Rx diclofenac sodium 75 mg 75 mg PO BID PRN pain #60 tabs 02/28/24 Rx tablet,delayed release tramadol 50 mg tablet 50 mg PO TID PRN pain #90 tabs 02/28/24 Rx tramadol 50 mg tablet 50 mg PO TID PRN pain #90 tabs 03/29/24 Rx cyclobenzaprine 10 mg tablet 10 mg PO BID PRN muscle spasm #60 05/30/24 Rx tabs diclofenac sodium 75 mg 75 mg PO BID PRN pain #60 tabs 05/30/24 Rx tablet,delayed release tramadol 50 mg tablet 50 mg PO TID PRN pain #90 tabs 05/30/24 Rx tramadol 50 mg tablet 50 mg PO TID PRN pain #90 tabs 07/04/24 Rx Allergies Allergy/AdvReac Type Severity Reaction Status Date / Time Penicillins Allergy Unknown Verified 07/08/23 07:37 Exam Constitutional Documenting provider has reviewed patient's vital signs: yes Common normals: no apparent distress, oriented x3, healthy appearing, alert and well nourished General appearance: cooperative HENMT Common normals: normocephalic, hearing grossly normal bilaterally and moist oral mucous membranes Head and scalp: normocephalic Eye Common normals: PERRL Pupil: PERRL Neck & C-Spine Common normals: full ROM General: normal visual inspection Chest Common normals: inspection of chest normal Respiratory Common normals: normal respiratory effort, no retractions and no use of accessory muscles Back & Pelvis Lumbar spine/lower back: ROM limited, pain with ROM, lumbar spinal tenderness and paraspinal muscle tenderness Sacroiliac joints: SI joints normal Other: predominately axial low back pain without radiculopathy Extremity Common normals: normal to inspection and full ROM Neuro Common normals: oriented x3, CN's II-XII intact bilaterally, moves all extremities, no focal motor deficits, no sensory deficits noted and deep tendon reflexes 2+ bilaterally Sensorium/orientation: alert Motor exam: strength 5/5 throughout and no movement abnormalities noted Psych Common normals: mental status grossly normal, thought process normal, cooperative, affect normal, speech normal and activity/motor behavior normal Speech: normal speech Thought process: normal thought process Results Additional Findings Additional findings: If on a controlled substance or opioids, I have checked an OARRS report on this patient and there are no aberrancies noted in the prescribing history.??If on a controlled substance or opioid a drug screen was completed and reviewed within the last year, and if there has not been a drug screen completed we ordered one today to monitor higher risk, state monitored pain medication use. As part of providing excellent, safe, comprehensive care, the following was completed at our patient's visit: 1. A medication reconciliation and review to ensure accurate knowledge of current/active medications, including asking our patients to inform us about any kfeb-wio-qnnyejd medications or herbal remedies/nutritional supplements/alternative remedies. 2. A review to specifically ensure our patients have had annual screening for screening for depression, screening for tobacco use, and screening for unhealthy alcohol use. For concerning screenings had a discussion with the patient, provided patient education, and recommended follow-up with primary care provider when appropriate. If patient noted with a risk of falling, they received education on strength, gait, and balance training to prevent future risk of falling. Assessment and Plan Assessment and Plan (1) Spondylolisthesis: (2) Encounter for long-term use of opiate analgesic: Assessment and Plan: I feel these medications are improving the patient's quality of life and allow them to tolerate activities of daily living as well as participate in recreational activity.? The patient does not report intolerable side effects. The patient is NOT opioid naive and non-pharmacologic and non-opioid treatment has failed to significantly relieve the patient's pain and improve functionality. The patient has a diagnosis that is related to a somatic or visceral pain etiology. ? ?? I reviewed with the patient the potential risks and side effects with the use of? opioid medications including but not limited to respiratory depression,? sedation, and even . I verified the patient has access to naloxone should? these effects occur. I advised the patient to avoid the use of any other? sedation substances including alcohol, THC, and benzodiazepines while? taking opioid medications due to the risk of compounding side effects and? detrimental outcomes. I reviewed the REGISTERED DIETITIAN, pain treatment agreement, urine? drug screen, and opioid start talking forms. The patient was advised to let? their family know they had Naloxone in case they would need to administer? the medication.? ?? A drug screen was completed within the last year, and no aberrancies were noted regarding their use of controlled substances. The patient understands they are subject to the terms and conditions of the pain contract that they have signed. ? ?? I have checked an OARRS report on this patient today and there are no aberrancies noted in the prescribing history.? (3) Lumbar spondylosis: Plan chronic low back pain, mild to moderate improvement in pain with current medication regimen without side effects f/u 3 months sooner if needed, consider bilateral L3-4 L4-5 facet blocks working towards RFA in the future
== END 2024-07-05 15:17 | disposition home or self-care (01) ==
LOC: PM 15:16
PROVIDERS: PCP Family Medicine; Visit Provider Nurse Practitioner
DX: M43.10 Spondylolisthesis, site unspecified (principal); Z79.891 Long term (current) use of opiate analgesic; M47.816 Spondylosis without myelopathy or radiculopathy, lumbar region
CPT/HCPCS: G0463

== ENCOUNTER 2024-10-18 11:05 | Outpatient (OUT) | payer OTHER, SELFPAY ==
--- OUTSIDE RECORDS SUMMARY | 2024-10-18 11:09 | XMS_ITS | CCD ---
Author Organization [facility] Care Team Providers Care Tailor Garment Fitter Name Role Phone LAKSHMIPATHY ., NARENDRANATH Admitting Sara vailable LAKSHMIPATHY ., NARENDRANATH Attending Sara vailable HOUSE, DR MEDELLIN Primary Care Unavailable ECHEVARRIA ., DR PAPA Martin Admitting Unavailable ECHEVARRIA ., DR PAPA Martin Attending Unavailable HOUSE, DR MEDELLIN Primary Care Unavailable CORBIN ., SHAHID Consulting Unavailable ECHEVARRIA ., DR PAPA Martin Admitting Unavailable ECHEVARRIA ., DR PAPA Martin Attending Unavailable HOUSE, DR MEDELLIN Primary Care Unavailable CORBIN ., SHAHDI Consulting Unavailable ECHEVARRIA ., DR PAPA Martin Admitting Unavailable ECHEVARRIA ., DR PAPA Martin Attending Unavailable HOUSE, DR MEDELLIN Primary Care Unavailable CORBIN ., SHAHID Consulting Unavailable ECHEVARRIA ., DR PAPA Martin Admitting Unavailable ECHEVARRIA ., DR PAPA Martin Attending Unavailable HOUSE, DR MEDELLIN Primary Care Unavailable CORBIN ., SHAHID Consulting Unavailable HOUSE, DO VIGNESH Dawkins Attending Unavailable HOUSE, VIGNESH Dawkins Primary Care Unavailable HOUSE, VIGNESH Dawkins Primary Care Unavailable Óscar AMAYA, Lior Villafuerte Attending Unavailable HOUSE, VIGNESH Dawkins Primary Care Unavailable Allergies Allergy Classification Reported Allergen(s) Allergy Type Date of Onset Reaction(s) Facility (1 source) Penicillins Drug allergy (disorder) 11-16-2016 [facility] Repository (1 source) Penicillin; Translations: [penicillin] Drug Allergy [facility] Repository Problems Active Problems Problem Classification [...] Interpretation Reference Range Facil ity Outside Recordson 07-09-2024 Outside Records [id number]#1.00OTG TIFF [facility] Patient Handouton 11-01-2023 Patient Handout [id number]#1.00OT [facility] Patient Provided Health Data on 11-01-2023 Patient Provided Health Data [id number]#1.00OT [facility] Encounters Encounter Date Encounter Type Care Provider Facility Start: 07-31-2024 ambulatory DO VIGNESH PRAKASH Faci lity:[facility] Start: 06-07-2024 End: 06-07-2024 ambulatory VIGNESH PRAKASH Facility:[facility] Start: 10-31-2023 End: 10-31-2023 ambulatory Lior Cantrell MD Facility:[facility] Start: 03-31-2023 ambulatory OSITO PRUITT . Facility:[facility] Start: 12-30-2022 End: 12-31-[address] PAPA ECHEVARRIA . Facility:[facility] Start: 09-23-2022 End: 09-24-[address] PAPA ECHEVARRIA . Facility:[facility] Start: 06-17-2022 End: 06-18-[address] PAPA ECHEVARRIA . Facility:[facility] Start: 02-25-2022 End: 02-26-[address] PAPA ECHEVARRIA . Facility: Payers Date Payer Category Payer Unknown [id number] 2023 Private Health Insurance [id number] 1980 Unknown [id number] 2.16.84 [id number] 1980 Unknown [id number] 2.16.84 [id number] 1980 Unknown [id number] 2.16.84 [id number] 1980 Unknown [id number] 2.16.84 [id number] 1980 Unknown [id number] 2.16.84 [id number] 1980 Unknown [id number] 2.16.8 [id number] 1980 Unknown [id number] 2.16.8 [id number] 1959 Private Health Insurance [id number] 1959 Unknown [id number] Medication management note 06-07-2024 Note Date & Type Note Facility 06-07-2024 Note Entered by FELIX PRAKASH DO on June 07, 2024 16:42:59 EDT From: VIGNESH PRAKASH DO [id number] Sent: 06/07/2024 16:42:59 EDT Subject: Medication Management Submitted: Complete:lisinopril (lisinopril 10 mg oral tablet) Signed by VIGNESH PRAKASH DO 06/07/2024 16:42:00 EDT Approved with modifications: lisinopril (LISINOPRIL 10 MG TABLET) TAKE 1 TABLET BY MOUTH EVERY DAY Qty: 30 tab(s) Days Supply: 30 Refills: 5 Substitutions Allowed Route To Pharmacy - [facility]/pharmacy #[id number] Patient matched by VIGNESH PRAKASH DO on 06/07/2024 16:42:38 EDT From: [facility] [id number] To: VIGNESH PRAKASH DO Sent: June 07, 2024 2:02:21 PM CDT Subject: Medication Management Due: June 08, 2024 12:12:14 AM CDT On Hold Pending Signature Dispensed Drug: lisinopril (lisinopril 10 mg oral tablet), TAKE 1 TABLET BY MOUTH EVERY DAY Quantity: 30 tab(s) Days Supply: 30 Refills: 0 Substitutions Allowed Notes from Pharmacy: [facility] Consultation note 12-30-2022 Note Date & [...] be followed up in the clinic. [facility] Consultation note 12-30-2022 Note Date & Type [...] indicated. Patient agrees with this plan. [facility] Consultation note 09-23-2022 Note Date & Type [...] three months' time unless otherwise indicated. [facility] Consultation note 09-23-2022 Note Date & Type [...] patient reported 100% relief of pain. [facility] Consultation note 06-17-2022 Note Date & Type [...] procedure well with no overt complications. [facility] Consultation note 06-17-2022 Note Date & Type [...] three months' time unless otherwise indicated. [facility] Consultation note 02-25-2022 Note Date & Type [...] in 3 months' time unless otherwise indicated. [facility] Signed and Approved by: SHAHID CORBIN . 03/04/2022 17:08:00 [facility] Summary Purpose Family History No Family History Records FoundNo Family History Records Found Advance Directives No Advanced Directives Records FoundNo Advanced Directives Records Found Additional Source Comments (unrecognized sect ion and content) No Status Records FoundNo Status Records Found INFORMATION SOURCE (unrecogn ized section and content) DATE CREATED AUTHOR 01/08/2023 [facility] DATE CREATED AUTHOR AUTHOR'S ORGANIZ ATION 07/30/2024 [facility] FOR RECORDS PERTAINING TO PATIENTS WHO ARE [...] BE BASED ON THE PRIMARY CLINICAL RECORDS. [employer]. provides no warranty or guarantee of the accuracy or completeness of information in this document.
--- NOTE | 2024-10-18 11:34 | P.CN_ITS ---
Consult Note: HPI Data of Consult Patient: known to practice within the last 3 years Requesting Physician: Jen Goddard NP Primary Care Provider: VIGNESH PRAKASH Consult Narrative Reason for consult: f/u Narrative: Alonzo campo pleasant 43 year old male presents for evaluation and management of chronic low back pain without radiculopathy. Today rating pain 2-3/10 worse on the right lower lumbar spine than left. Patient finds great benefit from current medication regimen without side effects. recent lumbar xray consistent with lumbar facet arthropathy, lumbar DDD, lumbar spondylolistheses. Patient reporting numbness tingling bilateral upper thighs. negative radiculopathy. Pain increasing to moderate to severe with activity, pushing, pulling, standing, walking, lifting. Pain decreases with sitting, lying, sleeping. pt has noticed over the last month increasing fatigue to BLE and pain. cc:: CC: Jen Goddard NP Review of Systems ROS Status of ROS 10 or more systems reviewed and unremark able except as noted in history and below Musculoskeletal Reports: back pain and extremity pain PFSH PFSH Medical History Lumbar spondylosis ?M47.816 - Spondylosis without myelopathy or radiculopathy, lumbar region (ICD-10) Meds Home Medications and Allergies Home Medications ?Medication ?Instructions ?Recorded ?Confirmed ?Type lisinopril 5 mg tablet 5 mg PO DAILY 07/08/23 07/08/23 History cyclobenzaprine 10 mg tablet 10 mg PO BID PRN muscle spasm #60 12/01/23 Rx tabs tramadol 50 mg tablet 50 mg PO TID PRN pain #90 tabs 01/26/24 Rx cyclobenzaprine 10 mg tablet 10 mg PO BID PRN Spasms #60 tabs 02/28/24 Rx diclofenac sodium 75 mg 75 mg PO BID PRN pain #60 tabs 02/28/24 Rx tablet,delayed release tramadol 50 mg tablet 50 mg PO TID PRN pain #90 tabs 02/28/24 Rx tramadol 50 mg tablet 50 mg PO TID PRN pain #90 tabs 03/29/24 Rx cyclobenzaprine 10 mg tablet 10 mg PO BID PRN muscle spasm #60 05/30/24 Rx tabs diclofenac sodium 75 mg 75 mg PO BID PRN pain #60 tabs 05/30/24 Rx tablet,delayed release tramadol 50 mg tablet 50 mg PO TID PRN pain #90 tabs 05/30/24 Rx tramadol 50 mg tablet 50 mg PO TID PRN pain #90 tabs 07/04/24 Rx cyclobenzaprine 10 mg tablet 10 mg PO BID PRN muscle spasm #60 08/30/24 Rx tabs diclofenac sodium 75 mg 75 mg PO BID PRN pain #60 tabs 08/30/24 Rx tablet,delayed release naloxone 4 mg/actuation nasal 4 mg intranasal Q2M PRN opioid 08/30/24 Rx spray (Narcan) overdose #1 ea tramadol 50 mg tablet 50 mg PO TID PRN pain #90 tabs 08/30/24 Rx Allergies Allergy/AdvReac Type Severity Reaction Status Date / Time Penicillins Allergy Unknown Verified 07/08/23 07:37 Exam Narrative Exam Narrative: increased pain with standing and walking, improvement with forward flexion and rest Constitutional Documenting provider has reviewed patient's vital signs: yes Common normals: no apparent distress, oriented x3, healthy appearing, alert and well nourished General appearance: cooperative HENMT Common normals: normocephalic, hearing grossly normal bilaterally and moist oral mucous membranes Head and scalp: normocephalic Eye Common normals: PERRL Pupil: PERRL Neck & C-Spine Common normals: full ROM General: normal visual inspection Chest Common normals: inspection of chest normal Respiratory Common normals: normal respiratory effort, no retractions and no use of accessory muscles Back & Pelvis Lumbar spine/lower back: ROM limited, pain with ROM, lumbar spinal tenderness and paraspinal muscle tenderness Sacroiliac joints: SI joints normal Other: predominately axial low back pain without radiculopathy Extremity Common normals: normal to inspection and full ROM Neuro Common normals: oriented x3, CN's II-XII intact bilaterally, moves all extremities, no focal motor deficits, no sensory deficits noted and deep tendon reflexes 2+ bilaterally Sensorium/orientation: alert Motor exam: strength 5/5 throughout and no movement abnormalities noted Psych Common normals: mental status grossly normal, thought process normal, cooperative, affect normal, speech normal and activity/motor behavior normal Speech: normal speech Thought process: normal thought process Results Additional Findings Additional findings: If on a controlled substance or opioids, I have checked an [place]AR[place] report on this patient and there are no aberrancies noted in the prescribing history.??If on a controlled substance or opioid a drug screen was completed and reviewed within the last year, and if there has not been a drug screen completed we ordered one today to monitor higher risk, state monitored pain medication use. As part of providing excellent, safe, comprehensive care, the following was completed at our patient's visit: 1. A medication reconciliation and review to ensure accurate knowledge of current/active medications, including asking our patients to inform us about any [id number] medications or herbal remedies/nutritional supplements/alternative remedies. 2. A review to specifically ensure our patients have had annual screening for screening for depression, screening for tobacco use, and screening for unhealthy alcohol use. For concerning screenings had a discussion with the patient, provided patient education, and recommended follow-up with primary care provider when appropriate. If patient noted with a risk of falling, they received education on strength, gait, and balance training to prevent future risk of falling. Assessment and Plan Assessment and Plan (1) Lumbar stenosis with neurogenic claudication: (2) Myalgia, other site: (3) Spondylolisthesis: (4) Encounter for long-term use of opiate analgesic: Assessment and Plan: I feel these medications are improving the patient's quality of life and allow them to tolerate activities of daily living as well as participate in recreational activity.? The patient does not report intolerable side effects. The patient is NOT opioid naive and non-pharmacologic and non-opioid treatment has failed to significantly relieve the patient's pain and improve functionality. The patient has a diagnosis that is related to a somatic or visceral pain etiology. ? ?? I reviewed with the patient the potential risks and side effects with the use of? opioid medications including but not limited to respiratory depression,? sedation, and even . I verified the patient has access to naloxone should? these effects occur. I advised the patient to avoid the use of any other? sedation substances including alcohol, THC, and benzodiazepines while? taking opioid medications due to the risk of compounding side effects and? detrimental outcomes. 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 drug screen, and opioid start talking forms. The patient was advised to let? their family know they had Naloxone in case they would need to administer? the medication.? ?? A drug screen was completed within the last year, and no aberrancies were noted regarding their use of controlled substances. The patient understands they are subject to the terms and conditions of the pain contract that they have signed. ? ?? I have checked an OARRS report on this patient today and there are no aberrancies noted in the prescribing history.? (5) Lumbar spondylosis: Plan declining updating lumbar mri without contrast to assess lumbar stenosis with NC and spondylolisthesis working towards interventional therapy vs NS consultation continue HEP as tolerated continue current medications, finding moderate to significant benefit. continue flexeril 10mg BID PRN and tramadol 50mg TID PRN moderate to severe pain, has been utilizing less the last 2 weeks as he has been off of work risks vs benefits of current medication regimen reviewed narcan previously discussed and prescribed f/u after lumbar MRI or 3 months for medication management
== END 2024-10-18 11:06 | disposition home or self-care (01) ==
LOC: PM 11:05
PROVIDERS: PCP Family Medicine; Visit Provider Nurse Practitioner
DX: M48.062 Spinal stenosis, lumbar region with neurogenic claudication (principal); M79.18 Myalgia, other site; M43.16 Spondylolisthesis, lumbar region; Z79.891 Long term (current) use of opiate analgesic; M47.816 Spondylosis without myelopathy or radiculopathy, lumbar region
CPT/HCPCS: G0463

== ENCOUNTER 2025-01-17 15:19 | Outpatient (OUT) | payer OTHER, SELFPAY ==
--- NOTE | 2025-01-17 15:50 | P.CN_ITS ---
Consult Note: HPI Data of Consult Patient: known to practice within the last 3 years Requesting Physician: Jen Goddard NP Primary Care Provider: VIGNESH PRAKASH Consult Narrative Reason for consult: f/u Narrative: Alonzo campo pleasant 44 year old male presents for evaluation and management of chronic low back pain. Today rating pain 6/10 increasing to 10/10 with standing and walking. Finds benefit from current medication regimen without side effects. recent lumbar xray consistent with lumbar facet arthropathy, lumbar DDD, lumbar spondylolistheses. Patient reporting numbness tingling bilateral upper thighs and posterior legs. Pain increasing to moderate to severe with activity, pushing, pulling, standing, walking, lifting. Pain decreases with sitting, lying, sleeping. pt has noticed over the last 3 months increasing fatigue to BLE and pain. SInce last visit has completed 6 weeks of provider guided HEP without improvement. cc:: CC: Jen Goddard NP Review of Systems ROS Status of ROS 10 or more systems reviewed and unremark able except as noted in history and below Musculoskeletal Reports: back pain and extremity pain PFSH PFSH Medical History Lumbar spondylosis ?M47.816 - Spondylosis without myelopathy or radiculopathy, lumbar region (ICD-10) Meds Home Medications and Allergies Home Medications ?Medication ?Instructions ?Recorded ?Confirmed ?Type lisinopril 5 mg tablet 5 mg PO DAILY 07/08/23 07/08/23 History cyclobenzaprine 10 mg tablet 10 mg PO BID PRN Spasms #60 tabs 02/28/24 Rx diclofenac sodium 75 mg 75 mg PO BID PRN pain #60 tabs 08/30/24 Rx tablet,delayed release naloxone 4 mg/actuation nasal 4 mg intranasal Q2M PRN opioid 08/30/24 Rx spray (Narcan) overdose #1 ea tramadol 50 mg tablet 50 mg PO TID PRN pain #90 tabs 10/18/24 Rx cyclobenzaprine 10 mg tablet 10 mg PO BID PRN muscle spasm #60 11/28/24 Rx tabs diclofenac sodium 75 mg 75 mg PO BID PRN pain #60 tabs 11/28/24 Rx tablet,delayed release tramadol 50 mg tablet 50 mg PO TID PRN pain #90 tabs 11/28/24 Rx tramadol 50 mg tablet 50 mg PO TID PRN pain #90 tabs 12/27/24 Rx Allergies Allergy/AdvReac Type Severity Reaction Status Date / Time Penicillins Allergy Unknown Verified 07/08/23 07:37 Exam Narrative Exam Narrative: increased pain with standing and walking, improvement with forward flexion and rest Constitutional Documenting provider has reviewed patient's vital signs: yes Common normals: no apparent distress, oriented x3, healthy appearing, alert and well nourished General appearance: cooperative HENMT Common normals: normocephalic, hearing grossly normal bilaterally and moist oral mucous membranes Head and scalp: normocephalic Eye Common normals: PERRL Pupil: PERRL Neck & C-Spine Common normals: full ROM General: normal visual inspection Chest Common normals: inspection of chest normal Respiratory Common normals: normal respiratory effort, no retractions and no use of accessory muscles Back & Pelvis Lumbar spine/lower back: ROM limited, pain with ROM, lumbar spinal tenderness, paraspinal muscle tenderness and straight leg raise negative bilaterally Sacroiliac joints: SI joints normal Other: decreased sensation bilateral L4,5,S1 increased pain at L1-L5 with facet loading decreased strength, 4/5 in BLE Extremity Common normals: normal to inspection and full ROM Neuro Common normals: oriented x3, CN's II-XII intact bilaterally, moves all extremities, no focal motor deficits, no sensory deficits noted and deep tendon reflexes 2+ bilaterally Sensorium/orientation: alert Motor exam: no movement abnormalities noted Psych Common normals: mental status grossly normal, thought process normal, coop erative, affect normal, speech normal and activity/motor behavior normal Speech: normal speech Thought process: normal thought process Results Additional Findings Additional findings: If on a controlled substance or opioids, I have checked an [place]AR[place] report on this patient and there are no aberrancies noted in the prescribing history.??If on a controlled substance or opioid a drug screen was completed and reviewed within the last year, and if there has not been a drug screen completed we ordered one today to monitor higher risk, state monitored pain medication use. As part of providing excellent, safe, comprehensive care, the following was completed at our patient's visit: 1. A medication reconciliation and review to ensure accurate knowledge of current/active medications, including asking our patients to inform us about any [id number] medications or herbal remedies/nutritional supplements/alternative remedies. 2. A review to specifically ensure our patients have had annual screening for screening for depression, screening for tobacco use, and screening for unhealthy alcohol use. For concerning screenings had a discussion with the patient, provided patient education, and recommended follow-up with primary care provider when appropriate. If patient noted with a risk of falling, they received education on strength, gait, and balance training to prevent future risk of falling. Assessment and Plan Assessment and Plan (1) Lumbar stenosis with neurogenic claudication: (2) Myalgia, other site: (3) Spondylolisthesis: (4) Encounter for long-term use of opiate analgesic: Assessment and Plan: I feel these medications are improving the patient's quality of life and allow them to tolerate activities of daily living as well as participate in recreational activity.? The patient does not report intolerable side effects. The patient is NOT opioid naive and non-pharmacologic and non-opioid treatment has failed to significantly relieve the patient's pain and improve functionality. The patient has a diagnosis that is related to a somatic or visceral pain etiology. ? ?? I reviewed with the patient the potential risks and side effects with the use of? opioid medications including but not limited to respiratory depression,? sedation, and even . I verified the patient has access to naloxone should? these effects occur. I advised the patient to avoid the use of any other? sedation substances including alcohol, THC, and benzodiazepines while? taking opioid medications due to the risk of compounding side effects and? detrimental outcomes. 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 drug screen, and opioid start talking forms. The patient was advised to let? their family know they had Naloxone in case they would need to administer? the medication.? ?? A drug screen was completed within the last year, and no aberrancies were noted regarding their use of controlled substances. The patient understands they are subject to the terms and conditions of the pain contract that they have signed. ? ?? I have checked an OARRS report on this patient today and there are no aberrancies noted in the prescribing history.? (5) Lumbar spondylosis: Plan update lumbar mri without contrast to assess lumbar stenosis with NC and spondylolisthesis working towards interventional therapy vs NS consultation continue HEP as tolerated dc diclofenac start celebrex 100mg BID PRN pain continue flexeril 10mg BID PRN pain/spasms continue tramadol 50mg TID PRN moderate to severe pain narcan previously discussed and prescribed f/u to review lumbar MRI
== END 2025-01-17 15:20 | disposition home or self-care (01) ==
LOC: PM 15:20
PROVIDERS: PCP Family Medicine; Visit Provider Nurse Practitioner
DX: M48.062 Spinal stenosis, lumbar region with neurogenic claudication (principal); M79.18 Myalgia, other site; M43.16 Spondylolisthesis, lumbar region; Z79.891 Long term (current) use of opiate analgesic; M47.816 Spondylosis without myelopathy or radiculopathy, lumbar region
CPT/HCPCS: G0463

== ENCOUNTER 2025-02-05 15:31 | Outpatient (OUT) | payer OTHER, SELFPAY ==
--- NOTE | 2025-02-05 15:34 | MR_ITS ---
[address] [address] Patient Name: JAS PATTERSON MRN: [id number] date: 1980 Sex: M Assigned Patient Location: MRI Current Patient Location: MRI Accession/Order Number: [id number] Exam Date: 02/05/2025 16:17 Report Date: 02/05/2025 16:24 At the request of: NADER SCHAEFER NP Procedure: MR lumbar spine wo con MRI Lumbar Spine done withoutcontrast TECHNIQUE: Multiplanar T1 and T2-weighted imaging of lumbar spine obtained without contrast. HISTORY: Chronic back pain. Radiculopathy COMPARISON: Plain film imaging 10/13/2023 The last fully segmented vertebral pair is operationally defined as L5/S1. POST SURGERY CHANGES: None BONE MARROW INFILTRATION: None BONE MARROW EDEMA: None BONY ALIGNMENT: Adequate bony alignment identified. SPINAL CANAL: No significant central canal narrowing. LUMBAR FRACTURE: None BONY LESIONS: None KIDNEYS: No hydronephrosis is identified. AORTA: No aortic aneurysm is seen. CONUS MEDULLARIS : The distal spinal cord is in adequate position without abnormality. Additional findings CONJOINED NERVE ROOT: None Lower thoracic level: T12-L1 spondylosis L1-2 :Adequate disc space. No disc herniation. Patent central canal. Posterior element hypertrophy. Patent neural foramen. L2-3: Adequate disc space. Diffuse disc bulge. Mild central canal stenosis. Posterior element-type vertebrae. Facet diastases. Bilateral neural foraminal narrowing. L3-4: Disc space narrowing. Midline disc protrusion. Concavity intrathecal sac. Moderate central canal stenosis. Posterior element hypertrophy. Moderate bilateral neural foraminal narrowing L4-5: Disc space narrowing. Mild retrolisthesis. Diffuse disc bulge with midline disc protrusion/extrusion. Inferior migration. Flattening of intrathecal sac. Mild to moderate central canal stenosis. Posterior element hypertrophy. Marked bilateral neural foraminal narrowing L5-S1: Mild disc space narrowing. Diffuse disc bulge. Epidural fat. Small central canal. Posterior element hypertrophy. Mild bilateral neural foraminal narrowing MR/MR lumbar spine wo con IMPRESSION: Multilevel discovertebral degenerative changes. Mild to moderate central canal stenosis greatest at the L4-5 level. Bilateral neural foraminal narrowing as above. L4-5 diffuse disc bulge with midline disc protrusion/extrusion with inferior migration. Pre-MRI plain film assessment: None Impression dictated by: Devan Keenan M.D.02/05/2025 4:24 PM Dictation Location: [place] [address] Electronically authenticated by: [id number] Y Date: 02/05/2025 16:24
== END 2025-02-05 15:32 | disposition home or self-care (01) ==
LOC: MRI 15:31
PROVIDERS: PCP Family Medicine; Visit Provider Nurse Practitioner
DX: M48.062 Spinal stenosis, lumbar region with neurogenic claudication (principal); M47.816 Spondylosis without myelopathy or radiculopathy, lumbar region; M51.369 Other intervertebral disc degeneration, lumbar region without mention of lumbar back pain or lower extremity pain
CPT/HCPCS: 72148

== ENCOUNTER 2025-02-14 15:23 | Outpatient (OUT) | payer OTHER, SELFPAY ==
--- NOTE | 2025-02-14 15:51 | PM.CN ---
Consult Note: HPI Data of Consult Patient: known to practice within the last 3 years Requesting Physician: Jen Goddard NP Primary Care Provider: VIGNESH PRAKASH Consult Narrative Reason for consult: f/u Narrative: Alonzo campo pleasant 44 year old male presents for evaluation and management of chronic low back pain. Today rating pain 6/10 increasing to 10/10 with standing and walking. Finds benefit from current medication regimen without side effects. recent lumbar xray consistent with lumbar facet arthropathy, lumbar DDD, lumbar spondylolistheses. recent lumbar MRI reveals multilevel DDD, stenosis, and facet arthropathy. see results below. Patient reporting numbness tingling bilateral upper thighs and posterior legs. Pain increasing to moderate to severe with activity, pushing, pulling, standing, walking, lifting. Pain decreases with sitting, lying, sleeping. pt has noticed over the last 3 months increasing fatigue to BLE and pain. as of 02/08 has completed 6 weeks of provider guided HEP without improvement. cc:: CC: Jen Goddard NP Review of Systems ROS Status of ROS 10 or more systems reviewed and unremarkable except as noted in history and below Musculoskeletal Reports: back pain and extremity pain PFSH PFSH Medical History Lumbar spondylosis ?M47.816 - Spondylosis without myelopathy or radiculopathy, lumbar region (ICD-10) Meds Home Medications and Allergies Home Medications ?Medication ?Instructions ?Recorded ?Confirmed ?Type lisinopril 5 mg tablet 5 mg PO DAILY 07/08/23 07/08/23 History cyclobenzaprine 10 mg tablet 10 mg PO BID PRN Spasms #60 tabs 02/28/24 Rx diclofenac sodium 75 mg 75 mg PO BID PRN pain #60 tabs 08/30/24 Rx tablet,delayed release naloxone 4 mg/actuation nasal 4 mg intranasal Q2M PRN opioid 08/30/24 Rx spray (Narcan) overdose #1 ea tramadol 50 mg tablet 50 mg PO TID PRN pain #90 tabs 12/27/24 Rx tramadol 50 mg tablet 50 mg PO TID PRN pain #90 tabs 02/08/25 Rx Allergies Allergy/AdvReac Type Severity Reaction Status Date / Time Penicillins Allergy Unknown Verified 07/08/23 07:37 Exam Narrative Exam Narrative: increased pain with standing and walking, improvement with forward flexion and rest Constitutional Documenting provider has reviewed patient's vital signs: yes Common normals: no apparent distress, oriented x3, healthy appearing, alert and well nourished General appearance: cooperative HENGA Common normals: normocephalic, hearing grossly normal bilaterally and moist oral mucous membranes Head and scalp: normocephalic Eye Common normals: PERRL Pupil: PERRL Neck & C-Spine Common normals: full ROM General: normal visual inspection Chest Common normals: inspection of chest normal Respiratory Common normals: normal respiratory effort, no retractions and no use of accessory muscles Back & Pelvis Lumbar spine/lower back: ROM limited, pain with ROM, lumbar spinal tenderness and paraspinal muscle tenderness Sacroiliac joints: SI joint(s) abnormal Other: decreased sensation bilateral L4,5,S1 increased pain at L1-L5 with facet loading decreased strength, 4/5 in BLE Extremity Common normals: normal to inspection and full ROM Neuro Common normals: oriented x3, CN's II-XII intact bilaterally, moves all extremities, no focal motor deficits, no sensory deficits noted and deep tendon reflexes 2+ bilaterally Sensorium/orientation: alert Motor exam: no movement abnormalities noted Psych Common normals: mental status grossly normal, thought process normal, cooperative, affect normal, speech normal and activity/motor behavior normal Speech: normal speech Thought process: normal thought process Results Imaging Lumbar MRI : Attestation: I have reviewed the pertinent imaging results. Radiologist's impression: L1-2 :Adequate disc space. No disc herniation. Patent central canal. Posterior element hypertrophy. Patent neural foramen. L2-3: Adequate disc space. Diffuse disc bulge. Mild central canal stenosis. Posterior element-type vertebrae. Facet diastases. Bilateral neural foraminal narrowing. L3-4: Disc space narrowing. Midline disc protrusion. Concavity intrathecal sac. Moderate central canal stenosis. Posterior element hypertrophy. Moderate bilateral neural foraminal narrowing L4-5: Disc space narrowing. Mild retrolisthesis. Diffuse disc bulge with midline disc protrusion/extrusion. Inferior migration. Flattening of intrathecal sac. Mild to moderate central canal stenosis. Posterior element hypertrophy. Marked bilateral neural foraminal narrowing L5-S1: Mild disc space narrowing. Diffuse disc bulge. Epidural fat. Small central canal. Posterior element hypertrophy. Mild bilateral neural foraminal narrowing Additional Findings Additional findings: If on a controlled substance or opioids, I have checked an [place]AR[place] report on this patient and there are no aberrancies noted in the prescribing history.??If on a controlled substance or opioid a drug screen was completed and reviewed within the last year, and if there has not been a drug screen completed we ordered one today to monitor higher risk, state monitored pain medication use. As part of providing excellent, safe, comprehensive care, the following was completed at our patient's visit: 1. A medication reconciliation and review to ensure accurate knowledge of current/active medications, including asking our patients to inform us about any [id number] medications or herbal remedies/nutritional supplements/alternative remedies. 2. A review to specifically ensure our patients have had annual screening for screening for depression, screening for tobacco use, and screening for unhealthy alcohol use. For concerning screenings had a discussion with the patient, provided patient education, and recommended follow-up with primary care provider when appropriate. If patient noted with a risk of falling, they received education on strength, gait, and balance training to prevent future risk of falling. Assessment and Plan Assessment and Plan (1) Lumbar stenosis with neurogenic claudication: Assessment and Plan: The patient has had over 3 months of moderate to severe low back and BLE pain with functional impairment and inadequate response to conservative care including NSAIDS (unless there are contraindication such as concurrent blood thinners), multiple oral or topical pain medications, and home exercise program/physical therapy.? Patient has completed >6 weeks of guided home exercise program and/or formal physical therapy program without relief of their symptoms.? The Oswestry Disability Index was completed, and the patient scored a 31%.? We discussed the risks and benefits of the procedure with the patient, and we are NOT planning on using sedation as outlined in the guidelines from Medicare unless there is a documented reason that sedation would be strongly recommended.???The procedure will be completed with fluoroscopic guidance.? (2) Myalgia, other site: (3) Spondylolisthesis: (4) Encounter for long-term use of opiate analgesic: Assessment and Plan: I feel these medications are improving the patient's quality of life and allow them to tolerate activities of daily living as well as participate in recreational activity.? The patient does not report intolerable side effects. The patient is NOT opioid naive and non-pharmacologic and non-opioid treatment has failed to significantly relieve the patient's pain and improve functionality. The patient has a diagnosis that is related to a somatic or visceral pain etiology. ? ?? I reviewed with the patient the potential risks and side effects with the use of? opioid medications including but not limited to respiratory depression,? sedation, and even . I verified the patient has access to naloxone should? these effects occur. I advised the patient to avoid the use of any other? sedation substances including alcohol, THC, and benzodiazepines while? taking opioid medications due to the risk of compounding side effects and? detrimental outcomes. I reviewed the TECHNOLOGIST DEVELOPMENT, pain treatment agreement, urine? drug screen, and opioid start talking forms. The patient was advised to let? their family know they had Naloxone in case they would need to administer? the medication.? ?? A drug screen was completed within the last year, and no aberrancies were noted regarding their use of controlled substances. The patient understands they are subject to the terms and conditions of the pain contract that they have signed. ? ?? I have checked an OARRS report on this patient today and there are no aberrancies noted in the prescribing history.? (5) Lumbar spondylosis: Plan lumbar MRI reviewed with pt, declining NS consultation at this time. will trial right L3-4 L4-5 TFESI under fluoroscopy continue HEP as tolerated continue celebrex 100mg BID PRN pain continue flexeril 10mg BID PRN pain/spasms continue tramadol 50mg TID PRN moderate to severe pain narcan previously discussed and prescribed f/u 2 weeks after MARIZA, revisit lumbar RFAs for axial facet mediated low back pain
== END 2025-02-14 15:24 | disposition home or self-care (01) ==
LOC: PM 15:23
PROVIDERS: PCP Family Medicine; Visit Provider Nurse Practitioner
DX: M48.062 Spinal stenosis, lumbar region with neurogenic claudication (principal); M79.18 Myalgia, other site; M43.16 Spondylolisthesis, lumbar region; Z79.891 Long term (current) use of opiate analgesic; M47.816 Spondylosis without myelopathy or radiculopathy, lumbar region
CPT/HCPCS: G0463

== ENCOUNTER 2025-03-18 10:00 | Day surgery (SDC) | payer OTHER, SELFPAY ==
[2025-03-18 10:50] VITALS: BP 138/84; PULSE 99; TEMP 36.4; O2SAT 97
[2025-03-18 11:18] VITALS: BP 148/64; PULSE 86; O2SAT 97
[2025-03-18 11:22] VITALS: BP 142/63; PULSE 88; O2SAT 98
[2025-03-18] MEDS: BUPIVACAINE HCL 0.25% PF 25 MG/10 ML VIAL INJ (11:23)
[2025-03-18] MEDS: 0.9 % SODIUM CHLORIDE 10 ML SYRINGE - SALINE FLUSH INJ (11:23)
[2025-03-18] MEDS: IOHEXOL 240 MG/ML - 10 ML VIAL 12 MG INJ (11:24)
[2025-03-18] MEDS: DEXAMETHASONE SOD PHOS 10 MG/ML VIAL INJ (11:24)
[2025-03-18] MEDS: LIDOCAINE HCL 2% 400 MG/20 ML MDV INJ (11:24)
--- NOTE | 2025-03-18 11:24 | P.ON_ITS ---
Date of procedure: 03/18/25 Pre-op diagnosis: Pain due to lumbar stenosis with neurogenic claudication Post-op diagnosis: same as pre-op Procedure: Procedure: Right L3-4, L4-5 transforaminal epidural steroid injection Medications: Bupivacaine 0.25% 2cc, lidocaine 2% 1cc, dexamethasone 10mg The patient was seen and examined in the preoperative holding area.? Informed consent was obtained and placed on the chart.? Patient was brought to the medical procedure unit and placed in the prone position where a timeout was completed verifying the correct patient, procedure site, position, and planned special equipment using sterile aseptic technique.? Under direct fluoroscopic visualization a 25-gauge Quincke tipped spinal needle was advanced to the designated neural foramen where contrast dye was injected to show adequate spread.? The needle was inserted at level right L3-4. There was no evidence of vascular or adverse uptake.? Epidural spread was appreciated.? The above- mentioned injectate was then placed in a 1.5 mL aliquot preceded by negative aspiration.? The needle was removed. The needle was inserted and the procedure repeated at level right L4-5.? The surgery site was covered.? Patient was taken to the postprocedural recovery area and monitored for an appropriate length of time before found suitable for discharge in the accompaniment of a responsible adult. Anesthesia: Local Surgeon: Anabel Stover Pathology: none sent Condition: stable Disposition: no change
== END 2025-03-18 11:26 | disposition home or self-care (01) ==
LOC: SURGOUT 10:00
PROVIDERS: PCP Family Medicine; Visit Provider Anesthesiology
DX: M54.50 Low back pain, unspecified (principal); M48.062 Spinal stenosis, lumbar region with neurogenic claudication
CPT/HCPCS: 64483; 64484; J0665; J1100; Q9966

== ENCOUNTER 2025-03-27 15:19 | Outpatient (OUT) | payer OTHER, SELFPAY ==
--- NOTE | 2025-03-27 15:55 | PM.CN ---
Consult Note: HPI Data of Consult Patient: known to practice within the last 3 years Requesting Physician: Jen Goddard NP Primary Care Provider: VIGNESH PRAKASH Consult Narrative Reason for consult: f/u Narrative: Alonzo campo pleasant 44 year old male presents for evaluation of low back pain. since last visit underwent right L3/4 L4/5 TFESI with significant improvement in NC. continues to have moderate diffuse back and joint pain that is well controlled with current medication regimen. cc:: CC: Jen Goddard NP Review of Systems ROS Musculoskeletal Reports: back pain PFSH PFSH Medical History Lumbar spondylosis ?M47.816 - Spondylosis without myelopathy or radiculopathy, lumbar region (ICD-10) Meds Home Medications and Allergies Home Medications ?Medication ?Instructions ?Recorded ?Confirmed ?Type lisinopril 5 mg tablet 5 mg PO DAILY 07/08/23 03/18/25 History diclofenac sodium 75 mg 75 mg PO BID PRN pain #60 tabs 08/30/24 03/18/25 Rx tablet,delayed release naloxone 4 mg/actuation nasal 4 mg intranasal Q2M PRN opioid 08/30/24 03/18/25 Rx spray (Narcan) overdose #1 ea tramadol 50 mg tablet 50 mg PO TID PRN pain #90 tabs 02/08/25 03/18/25 Rx cyclobenzaprine 10 mg tablet 10 mg PO BID PRN muscle spasm #60 03/04/25 03/18/25 Rx tabs celecoxib 100 mg capsule (Celebrex) 100 mg PO BID 03/18/25 03/18/25 History Allergies Allergy/AdvReac Type Severity Reaction Status Date / Time Penicillins Allergy Unknown Unknown Verified 03/18/25 10:47 Exam Constitutional Documenting provider has reviewed patient's vital signs: yes Common normals: no apparent distress, oriented x3, healthy appearing, alert and well nourished General appearance: cooperative HENMT Common normals: normocephalic, hearing grossly normal bilaterally and moist oral mucous membranes Head and scalp: normocephalic Eye Common normals: PERRL Pupil: PERRL Neck & C-Spine Common normals: full ROM General: normal visual inspection Chest Common normals: inspection of chest normal Respiratory Common normals: normal respiratory effort, no retractions and no use of accessory muscles Back & Pelvis Lumbar spine/lower back: pain with ROM and lumbar spinal tenderness; ROM not limited Sacroiliac joints: SI joints normal Other: sensation intact bilateral facet loading bilateral L1-5 Extremity Common normals: normal to inspection and full ROM Neuro Common normals: oriented x3 Sensorium/orientation: alert Motor exam: no movement abnormalities noted Psych Common normals: mental status grossly normal, thought process normal, cooperative, affect normal, speech normal and activity/motor behavior normal Speech: normal speech Thought process: normal thought process Results Additional Findings Additional findings: If on a controlled substance or opioids, I have checked an [place]ARRS report on this patient and there are no aberrancies noted in the prescribing history.??If on a controlled substance or opioid a drug screen was completed and reviewed within the last year, and if there has not been a drug screen completed we ordered one today to monitor higher risk, state monitored pain medication use. As part of providing excellent, safe, comprehensive care, the following was completed at our patient's visit: 1. A medication reconciliation and review to ensure accurate knowledge of current/active medications, including asking our patients to inform us about any [id number] medications or herbal remedies/nutritional supplements/alternative remedies. 2. A review to specifically ensure our patients have had annual screening for screening for depression, screening for tobacco use, and screening for unhealthy alcohol use. For concerning screenings had a discussion with the patient, provided patient education, and recommended follow-up with primary care provider when appropriate. If patient noted with a risk of falling, they received education on strength, gait, and balance training to prevent future risk of falling. Portions of this note may have been carried over from the previous visit and updated as appropriate. Please note this office utilizes paper charting in addition to the electronic medical record. A list of current medications, vitals, and PMH is available there as the clinical staff outside of myself do not have access to [employer] charting during the clinic day operations. As part of providing quality comprehensive care the current medications, vitals, and PMH were reviewed in the paper chart. Assessment and Plan Assessment and Plan (1) Lumbar stenosis with neurogenic claudication: (2) Lumbar spondylosis: (3) Myalgia, other site: (4) Encounter for long-term use of opiate analgesic: Assessment and Plan: I feel these medications are improving the patient's quality of life and allow them to tolerate activities of daily living as well as participate in recreational activity.? The patient does not report intolerable side effects. The patient is NOT opioid naive and non-pharmacologic and non-opioid treatment has failed to significantly relieve the patient's pain and improve functionality. The patient has a diagnosis that is related to a somatic or visceral pain etiology. ? ?? I reviewed with the patient the potential risks and side effects with the use of? opioid medications including but not limited to respiratory depression,? sedation, and even . Within the last 12 months I have verified the patient has access to naloxone should? these effects occur. The patient was advised to let? their family know they had Naloxone in case they would need to administer? the medication. I advised the patient to avoid the use of any other? sedation substances including alcohol, THC, and benzodiazepines while? taking opioid medications due to the risk of compounding side effects and? detrimental outcomes. within the last 12 months I have reviewed the TECHNICAL SOLUTION ARCHITECT, pain treatment agreement and urine drug screen.? ?? A drug screen was completed within the last year, and no aberrancies were noted regarding their use of controlled substances. The patient understands they are subject to the terms and conditions of the pain contract that they have signed. ? ?? I have checked an OARRS report on this patient today and there are no aberrancies noted in the prescribing history.? Plan pain well controlled at this time, advised pt utilize additional PRN tylenol otc for mild pain. continue current medications, risks vs benefits reviewed. 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 f/u 3 months, sooner if needed
== END 2025-03-27 15:20 | disposition home or self-care (01) ==
LOC: PM 15:20
PROVIDERS: PCP Family Medicine; Visit Provider Nurse Practitioner
DX: M48.062 Spinal stenosis, lumbar region with neurogenic claudication (principal); M47.816 Spondylosis without myelopathy or radiculopathy, lumbar region; M79.10 Myalgia, unspecified site; Z79.891 Long term (current) use of opiate analgesic
CPT/HCPCS: G0463

== ENCOUNTER 2025-06-19 15:19 | Outpatient (OUT) | payer OTHER, SELFPAY ==
--- NOTE | 2025-06-19 15:32 | PM.CN ---
Consult Note: HPI Data of Consult Patient: known to practice within the last 3 years Requesting Physician: Jen Goddard NP Primary Care Provider: VIGNESH PRAKASH Consult Narrative Reason for consult: f/u Narrative: Alonzo Coy a pleasant 44 year old male presents for evaluation of low back pain. longstanding low back pain >12 months unresponsive to > 6 weeks of heat, ice, tylenol, motrin, and PT/provider guided HEP. continues to utilize tylenol, celebrex, tramadol, and flexeril with benefit without side effects. pain today 2/10 stiff increasing to 10/10 in the am when waking and by bedtime, bending, weather changes, sitting. cc:: CC: Jen Goddard NP Review of Systems ROS Musculoskeletal Reports: back pain PFSH PFSH Medical History Lumbar spondylosis ?M47.816 - Spondylosis without myelopathy or radiculopathy, lumbar region (ICD-10) Meds Home Medications and Allergies Home Medications ?Medication ?Instructions ?Recorded ?Confirmed ?Type lisinopril 5 mg tablet 5 mg PO DAILY 07/08/23 03/18/25 History diclofenac sodium 75 mg 75 mg PO BID PRN pain #60 tabs 08/30/24 03/18/25 Rx tablet,delayed release naloxone 4 mg/actuation nasal 4 mg intranasal Q2M PRN opioid 08/30/24 03/18/25 Rx spray (Narcan) overdose #1 ea tramadol 50 mg tablet 50 mg PO TID PRN pain #90 tabs 02/08/25 03/18/25 Rx cyclobenzaprine 10 mg tablet 10 mg PO BID PRN muscle spasm #60 03/04/25 03/18/25 Rx tabs celecoxib 100 mg capsule (Celebrex) 100 mg PO BID 03/18/25 03/18/25 History celecoxib 100 mg capsule (Celebrex) 100 mg PO BID #60 caps 04/24/25 Rx tramadol 50 mg tablet 50 mg PO TID PRN pain #90 tabs 04/24/25 Rx cyclobenzaprine 10 mg tablet 10 mg PO BID PRN muscle spasm #60 06/06/25 Rx tabs tramadol 50 mg tablet 50 mg PO TID PRN pain #90 tabs 06/06/25 Rx Allergies Allergy/AdvReac Type Severity Reaction Status Date / Time Penicillins Allergy Unknown Unknown Verified 03/18/25 10:47 Exam Constitutional Documenting provider has reviewed patient's vital signs: yes Common normals: no apparent distress, oriented x3, healthy appearing, alert and well nourished General appearance: cooperative HENMT Common normals: normocephalic, hearing grossly normal bilaterally and moist oral mucous membranes Head and scalp: normocephalic Eye Common normals: PERRL Pupil: PERRL Neck & C-Spine Common normals: full ROM General: normal visual inspection Chest Common normals: inspection of chest normal Respiratory Common normals: normal respiratory effort, no retractions and no use of accessory muscles Back & Pelvis Lumbar spine/lower back: ROM limited, pain with ROM, lumbar spinal tenderness and straight leg raise negative bilaterally Sacroiliac joints: SI joints normal Other: sensation intact bilateral facet loading bilateral L2-5 Extremity Common normals: normal to inspection and full ROM Neuro Common normals: oriented x3 Sensorium/orientation: alert Motor exam: no movement abnormalities noted Psych Common normals: mental status grossly normal, thought process normal, cooperative, affect normal, speech normal and activity/motor behavior normal Speech: normal speech Thought process: normal thought process Results Additional Findings Additional findings: If on a controlled substance or opioids, I have checked an OARRS report on this patient and there are no aberrancies noted in the prescribing history.??If on a controlled substance or opioid a drug screen was completed and reviewed within the last year, and if there has not been a drug screen completed we ordered one today to monitor higher risk, state monitored pain medication use. As part of providing excellent, safe, comprehensive care, the following was completed at our patient's visit: 1. A medication reconciliation and review to ensure accurate knowledge of current/active medications, including asking our patients to inform us about any [id number] medications or herbal remedies/nutritional supplements/alternative remedies. 2. A review to specifically ensure our patients have had annual screening for screening for depression, screening for tobacco use, and screening for unhealthy alcohol use. For concerning screenings had a discussion with the patient, provided patient education, and recommended follow-up with primary care provider when appropriate. If patient noted with a risk of falling, they received education on strength, gait, and balance training to prevent future risk of falling. Portions of this note may have been carried over from the previous visit and updated as appropriate. Please note this office utilizes paper charting in addition to the electronic medical record. A list of current medications, vitals, and PMH is available there as the clinical staff outside of myself do not have access to HDF charting during the clinic day operations. As part of providing quality comprehensive care the current medications, vitals, and PMH were reviewed in the paper chart. Assessment and Plan Assessment and Plan (1) Lumbar spondylosis: Assessment and Plan: The patient has had over 3 months of moderate to severe low back pain with functional impairment and inadequate response to conservative care including NSAIDS (unless there are contraindication such as concurrent blood thinners), multiple oral or topical pain medications, and home exercise program/physical therapy.? Patient has completed >6 weeks of guided home exercise program and/or formal physical therapy program without relief of their symptoms.? The Oswestry Disability Index was completed, and the patient scored a 29%.? (2) Lumbar stenosis with neurogenic claudication: (3) Myalgia, other site: (4) Encounter for long-term use of opiate analgesic: Assessment and Plan: I feel these medications are improving the patient's quality of life and allow them to tolerate activities of daily living as well as participate in recreational activity.? The patient does not report intolerable side effects. The patient is NOT opioid naive and non-pharmacologic and non-opioid treatment has failed to significantly relieve the patient's pain and improve functionality. The patient has a diagnosis that is related to a somatic or visceral pain etiology. ? ?? I reviewed with the patient the potential risks and side effects with the use of? opioid medications including but not limited to respiratory depression,? sedation, and even . Within the last 12 months I have verified the patient has access to naloxone should? these effects occur. The patient was advised to let? their family know they had Naloxone in case they would need to administer? the medication. I advised the patient to avoid the use of any other? sedation substances including alcohol, THC, and benzodiazepines while? taking opioid medications due to the risk of compounding side effects and? detrimental outcomes. within the last 12 months I have reviewed the CUSTOMER QUALITY SPECIALIST, pain treatment agreement and urine drug screen.? ?? A drug screen was completed within the last year, and no aberrancies were noted regarding their use of controlled substances. The patient understands they are subject to the terms and conditions of the pain contract that they have signed. ? ?? I have checked an OARRS report on this patient today and there are no aberrancies noted in the prescribing history.? Plan bilateral L4-5 L5-S1 mbb x2 under fluoroscopy in consideration of rfa for facet mediated low back pain continue current medications, risks vs benefits reviewed. continues to find benefit and denies side effects continue home exercise program as tolerated f/u after each MBB
--- OUTSIDE RECORDS SUMMARY | 2025-06-19 19:15 | XMS_ITS | CCD ---
Author Organization [facility] Care Team Providers Care Blender Snuff Name Role Phone LAKSHMIPATHY ., NARENDRANATH Admitting [...] Care Unavailable CORBIN ., SHAHID Consulting Unavailable Ck AMAYA, Anabel Rincon Attending Unavailable HOUSE, DO VIGNESH Dawkins Attending Unavailable HOUSE, VIGNESH Dawkins Primary Care Unavailable HOUSE, DO VIGNESH P Attending Unavailable HOUSE, VIGNESH P Primary Care Unavailable HOUSE, VIGNESH P Primary Care Unavailable Allergies Allergy Classification Reported Allergen(s) Allergy Type Date of Onset Reaction(s) Facility (1 source) Penicillins Drug allergy (disorder) 11-16-2016 [facility] Repository (1 source) Penicillin; Translations: [penicillin] Drug Allergy [facility] Repository Problems Active Problems Problem Classification [...] Interpretation Reference Range Facil ity Outside [facility] 03-29-2025 Outside Records [id number]# [facility] Outside Records [id number]# 1.00[facility] Rad - Other Radiology Report on 02-06-2025 Rad - Other Radiology Report [id number]#1 .00[facility] Lab - Other Lab [facility] - Other Lab Results [id number]# 1.00[facility] Miscellaneouson 01-28-2025 Miscellaneous [id number]# 1.00[facility] Outside [facility] 07-09-2024 Outside Records [id number]#1 .00[facility] Encounters Encounter Date Encounter Type Care Provider Facility Start: 03-18-2025 End: 03-18-2025 ambulatory Anabel Sotver MD Facility:[facility] Start: 01-28-2025 ambulatory DO VIGNESH PRAKASH Faci lity:[facility] Start: 07-31-2024 ambulatory DO VIGNESH PRAKASH Faci lity:[facility] Start: 06-07-2024 End: 06-07-2024 ambulatory VIGNESH PRAKASH Facility:[facility] Start: 03-31-2023 ambulatory OSITO PRUITT . Facility:[facility] Start: 12-30-2022 End: 12-31-[address] PAPA ECHEVARRIA . Facility:[facility] Start: 09-23-2022 End: 09-24-[address] PAPA ECHEVARRIA . Facility:[facility] Start: 06-17-2022 End: 06-18-[address] PAPA ECHEVARRIA . Facility:[facility] Start: 02-25-2022 End: 02-26-[address] PAPA ECHEVARRIA . Facility:[facility] Payers Date Payer Category Payer Private Health Insurance 2024 Unknown 2023 Unknown [id number] 2023 Private Health Insurance [id number] 1980 Unknown [id number] 2.16.84 [id number] 1980 Unknown [id number] 2.16.84 [id number] 1980 Unknown [id number] 2.16.84 [id number] 1980 Unknown [id number] 2.16.84 [id number] 1980 Unknown [id number] 2.16.84 [id number] 1980 Unknown [id number] 2.16. [id number] 1980 Unknown [id number] 2.16.8 [id number] 1980 Unknown [id number] 2.16.8 [id number] 1959 Private Health Insurance [id number] 1959 Unknown [id number] Medication management note 05-31-2025 Note Date & Type Note Facility 05-31-2025 Note Entered by FELIX PRAKASH DO on May 31, 2025 12:00:01 EDT From: VIGNESH PRAKASH DO To: [facility]/pharmacy #[id number] Sent: 05/31/2025 12:00:01 EDT Subject: Medication Management Submitted: Complete:lisinopril (lisinopril 10 mg oral tablet) Signed by VIGNESH PRAKASH DO 05/31/2025 12:00:00 EDT Approved with modifications: lisinopril (LISINOPRIL 10 MG TABLET) TAKE 1 TABLET BY MOUTH EVERY DAY Qty: 90 tab(s) Days Supply: 90 Refills: 1 Substitutions Allowed Route To Pharmacy - [facility]/pharmacy #[id number] From: [facility] STORE [id number] To: VIGNESH PRAKASH DO Sent: May 30, 2025 11:28:24 PM CDT Subject: Medication Management Due: May 31, 2025 12:10:18 AM CDT On Hold Pending Signature Dispensed Drug: lisinopril (lisinopril 10 mg oral tablet), TAKE 1 TABLET BY MOUTH EVERY DAY Quantity: 90 tab(s) Days Supply: 90 Refills: 1 Substitutions Allowed Notes from Pharmacy: [facility] Medication management note 12-03-2024 Note Date & Type Note Facility 12-03-2024 Note Entered by FELIX PRAKASH DO on December 03, 2024 07:35:29 EST From: VIGNESH PRAKASH DO To: [facility]/pharmacy #[id number] Sent: 12/03/2024 07:35:29 EST Subject: Medication Management Submitted: Complete:lisinopril (lisinopril 10 mg oral tablet) Signed by VIGNESH PRAKASH DO 12/03/2024 07:35:00 EST Approved lisinopril (LISINOPRIL 10 MG TABLET) TAKE 1 TABLET BY MOUTH EVERY DAY Qty: 90 tab(s) Days Supply: 90 Refills: 1 Substitutions Allowed Route To Pharmacy - [facility]/pharmacy #[id number] From: [employer] [id number] To: VIGNESH PRAKASH DO Sent: December 02, 2024 6:33:57 AM 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 Subject: Medication Management Due: December 03, 2024 12:04:34 AM 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 On Hold Pending Signature Dispensed Drug: lisinopril (lisinopril 10 mg oral tablet), TAKE 1 TABLET BY MOUTH EVERY DAY Quantity: 90 tab(s) Days Supply: 90 Refills: 1 Substitutions Allowed Notes from Pharmacy: [facility] Medication management note 06-07-2024 Note Date & Type Note Facility 06-07-2024 Note Entered by FELIX PRAKASH DO on June 07, 2024 16:42:59 EDT From: VIGNESH PRAKASH DO To: [facility]/pharmacy #[id number] Sent: 06/07/2024 16:42:59 EDT Subject: Medication Management Submitted: Complete:lisinopril (lisinopril 10 mg oral tablet) Signed by VIGNESH PRAKASH DO 06/07/2024 16:42:00 EDT Approved with modifications: lisinopril (LISINOPRIL 10 MG TABLET) TAKE 1 TABLET BY MOUTH EVERY DAY Qty: 30 tab(s) Days Supply: 30 Refills: 5 Substitutions Allowed Route To Pharmacy - [facility]/pharmacy #[id number] Patient matched by VIGNESH PRAKASH DO on 06/07/2024 16:42:38 EDT From: [employer] [id number] To: VIGNESH PRAKASH DO Sent: June 07, 2024 2:02:21 PM CDT Subject: Medication Management Due: June 08, 2024 12:12:14 AM CDT On Hold Pending Signature Dispensed Drug: lisinopril (lisinopril 10 mg oral tablet), TAKE 1 TABLET BY MOUTH EVERY DAY Quantity: 30 tab(s) Days Supply: 30 Refills: 0 Substitutions Allowed Notes from Pharmacy: [facility] Consultation note 12-30-2022 Note Date & [...] be followed up in the clinic. [facility] Consultation note 12-30-2022 Note Date & Type [...] indicated. Patient agrees with this plan. [facility] Consultation note 09-23-2022 Note Date & Type [...] three months' time unless otherwise indicated. [facility] Consultation note 09-23-2022 Note Date & Type [...] patient reported 100% relief of pain. [facility] Consultation note 06-17-2022 Note Date & Type [...] procedure well with no overt complications. [facility] Consultation note 06-17-2022 Note Date & Type [...] three months' time unless otherwise indicated. [facility] Consultation note 02-25-2022 Note Date & Type [...] in 3 months' time unless otherwise indicated. [facility] Signed and Approved by: SHAHID CORIBN . 03/04/2022 17:08:00 [facility] Summary Purpose Family History No Family History Records FoundNo Family History Records FoundNo Family History Records Found Advance Directives No Advanced Directives Records FoundNo Advanced Directives Records FoundNo Advanced Directives Records Found Additional Source Comments (unrecognized sect ion and content) No Status Records FoundNo Status Records FoundNo Status Records Found INFORMATION SOURCE (unrecogn ized section and content) DATE CREATED AUTHOR 01/08/2023 [facility] DATE CREATED AUTHOR AUTHOR'S ORGANIZ ATION 03/25/2025 [facility] DATE CREATED AUTHOR AUTHOR'S ORGANIZ ATION 06/02/2025 [facility] FOR RECORDS PERTAINING TO PATIENTS WHO ARE [...] BE BASED ON THE PRIMARY CLINICAL RECORDS. [facility]. provides no warranty or guarantee of the accuracy or completeness of information in this document.
== END 2025-06-19 15:20 | disposition home or self-care (01) ==
LOC: PM 15:19
PROVIDERS: PCP Family Medicine; Visit Provider Nurse Practitioner
DX: M47.816 Spondylosis without myelopathy or radiculopathy, lumbar region (principal); M48.062 Spinal stenosis, lumbar region with neurogenic claudication; M79.18 Myalgia, other site; Z79.891 Long term (current) use of opiate analgesic
CPT/HCPCS: G0463

== ENCOUNTER 2025-07-29 07:48 | Day surgery (SDC) | payer OTHER, SELFPAY ==
--- OUTSIDE RECORDS SUMMARY | 2025-07-29 07:50 | XMS_ITS | CCD ---
Author Organization [facility] Care Team Providers Care Warehouse Man Name Role Phone LAKSHMIPATHY ., NARENDRANATH Admitting [...] Ck AMAYA, Anabel Rincon Attending Unavailable HOUSE, VIGNESH Dawkins Primary Care Unavailable HOUSE, DO VIGNESH Dawkins Attending Unavailable HOUSE, DO VIGNESH Dawkins Attending Unavailable HOUSE, VIGNESH Dawkins Primary Care Unavailable Allergies Allergy Classification Reported Allergen(s) Allergy Type Date of Onset Reaction(s) Facility (1 source) Penicillins Drug allergy (disorder) 11-16-2016 [facility] Repository (1 source) Penicillin; Translations: [penicillin] Drug Allergy [facility] Repository Problems Active Problems Problem Classification [...] Interpretation Reference Range Facil ity Outside [facility] 06-20-2025 Outside Records [id number]#1 .[facility] 03-29-2025 Outside Records [id number]# 1.00[facility] Outside Record[facility] 03-19-2025 Outside Records [id number]# 1.00[facility] Rad - Other Radiology Report on 02-06-2025 Rad - Other Radiology Report [id number]#1 .00[facility] Lab - Other Lab [facility] - Other Lab Results [id number]# 1.00[facility] Miscellaneouson 01-28-2025 Miscellaneous [id number]# 1.[facility] 07-09-2024 Outside Records [id number]#1 .00[facility] Encounters Encounter Date Encounter Type Care Provider Facility Start: 03-18-2025 End: 03-18-2025 ambulatory Anabel Stover MD Facility:[facility] Start: 01-28-2025 ambulatory VIGNESH PRAKASH Facilit y:[facility] Start: 07-31-2024 ambulatory DO VIGNESH PRAKASH Faci lity:[facility] Start: 03-31-2023 ambulatory OSTIO PRUITT . Facility:[facility] Start: 12-30-2022 End: 12-31-[address] PAPA ECHEVARRIA . Facility:[facility] Start: 09-23-2022 End: 09-24-[address] PAPA ECHEVARRIA . Facility:[facility] Start: 06-17-2022 End: 06-18-[address] PAPA ECHEVARRIA . Facility:[facility] Start: 02-25-2022 End: 02-26-[address] PAPA ECHEVARRIA . Facility:[facility] Payers Date Payer Category Payer Private Health Insurance 2024 Unknown 2023 Unknown [id number] 2023 Private Health Insurance [id number] 1980 Unknown [id number] 2.16.84 [id number] 1980 Unknown [id number] 2.16.84 [id number] 1980 Unknown [id number] 2.16.84 [id number] 1980 Unknown [id number] 2.16.84 [id number] 1980 Unknown [id number] 2.16.84 [id number] 1980 Unknown [id number] 2.16. [id number] 1980 Unknown [id number] 2.16.8 [id number] 1980 Unknown [id number] 2.16.8 [id number] 1959 Private Health Insurance [id number] 1959 Unknown [id number] Medication management note 05-31-2025 Note Date & Type Note Facility 05-31-2025 Note Entered by FELIX PRAKASH DO on May 31, 2025 12:00:01 EDT From: VIGNESH PRAKASH DO To: [facility]/pharmacy #[id number] Sent: 05/31/2025 12:00:01 EDT Subject: Medication Management Submitted: Complete:lisinopril (lisinopril 10 mg oral tablet) Signed by VIGNESH PRAKASH DO 05/31/2025 12:00:00 EDT Approved with modifications: lisinopril (LISINOPRIL 10 MG TABLET) TAKE 1 TABLET BY MOUTH EVERY DAY Qty: 90 tab(s) Days Supply: 90 Refills: 1 Substitutions Allowed Route To Pharmacy - [facility]/pharmacy #[id number] From: [id number] To: VIGNESH PRAKASH DO Sent: May 30, 2025 11:28:24 PM CDT Subject: Medication Management Due: May 31, 2025 12:10:18 AM CDT On Hold Pending Signature Dispensed Drug: lisinopril (lisinopril 10 mg oral tablet), TAKE 1 TABLET BY MOUTH EVERY DAY Quantity: 90 tab(s) Days Supply: 90 Refills: 1 Substitutions Allowed Notes from Pharmacy: [facility] Medication management note 12-03-2024 Note Date & Type Note Facility 12-03-2024 Note Entered by FELIX PRAKASH DO on December 03, 2024 07:35:29 EST From: VIGNESH PRAKASH DO To: [facility]/pharmacy #[id number] Sent: 12/03/2024 07:35:29 EST Subject: Medication Management Submitted: Complete:lisinopril (lisinopril 10 mg oral tablet) Signed by VIGNESH PRAKASH DO 12/03/2024 07:35:00 EST Approved lisinopril (LISINOPRIL 10 MG TABLET) TAKE 1 TABLET BY MOUTH EVERY DAY Qty: 90 tab(s) Days Supply: 90 Refills: 1 Substitutions Allowed Route To Pharmacy - [facility]/pharmacy #[id number] From: [id number] To: VIGNESH PRAKASH DO Sent: December 02, 2024 6:33:57 AM 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 [facility] Consultation note 12-30-2022 Note Date & [...] indicated. Patient agrees with this plan. [facility] Consultation note 09-23-2022 Note Date & [...] three months' time unless otherwise indicated. [facility] Consultation note 09-23-2022 Note Date & [...] patient reported 100% relief of pain. [facility] Consultation note 06-17-2022 Note Date & [...] procedure well with no overt complications. [facility] Consultation note 06-17-2022 Note Date & [...] three months' time unless otherwise indicated. [facility] Consultation note 02-25-2022 Note Date & [...] in 3 months' time unless otherwise indicated. [facility] Signed and Approved by: SHAHID CORBIN . 03/04/2022 17:08:00 [facility] Summary Purpose Family History No Family [...] content) DATE CREATED AUTHOR 01/08/[address] [facility] DATE CREATED AUTHOR AUTHOR'S ORGANIZ ATION 03/25/[address] [facility] DATE CREATED AUTHOR AUTHOR'S ORGANIZ ATION 06/22/2025 [facility] FOR RECORDS PERTAINING TO PATIENTS WHO [...] BE BASED ON THE PRIMARY CLINICAL RECORDS. [employer]. provides no warranty or guarantee of the accuracy or completeness of information in this document.
[2025-07-29 08:05] VITALS: BP 122/74; PULSE 90; TEMP 36.5; O2SAT 98
[2025-07-29 08:41] VITALS: PULSE 78; O2SAT 100
[2025-07-29 08:42] VITALS: BP 127/67; PULSE 80; O2SAT 99
[2025-07-29 08:43] VITALS: BP 126/68
[2025-07-29] MEDS: BUPIVACAINE HCL 0.25% PF 25 MG/10 ML VIAL 8 ML INJ (08:43)
[2025-07-29] MEDS: LIDOCAINE HCL 2% 400 MG/20 ML MDV INJ (08:43)
--- NOTE | 2025-07-29 08:47 | W.PM.PROCNOT ---
Date of procedure: 07/29/25 Pre-op diagnosis: Pain due to lumbar spondylosis without myelopathy Post-op diagnosis: same as pre-op Procedure: Procedure: Bilateral L4-5, L5-S1 medial branch block Medications: Bupivacaine 0.25% 6cc The patient was seen and examined in the preoperative holding area.? An informed consent was obtained and placed on the chart.? The patient was brought to the medical procedure unit and placed in the prone position.? A timeout was completed verifying correct patient, procedure site, positioning, plan, and special equipment.? Using aseptic technique, the needle was placed at left L4. Under direct fluoroscopic visualization a Quincke-tipped spinal needle was advanced to the junction of the superior articulating process with the transverse process at the designated medial branch segment.? Preceded by negative aspiration, the above-mentioned injectate was placed in 1 mL aliquots.? The procedure was repeated at left L5, S1.? The needle was removed and insertion site was covered. The same procedure, at the same levels, was completed on the right side. The patient was taken to the postprocedural recovery area and monitored for an appropriate length of time before found suitable for discharge in the company of a responsible adult. Anesthesia: Local Surgeon: Anabel Stover Pathology: none sent Condition: stable Disposition: no change
== END 2025-07-29 08:50 | disposition home or self-care (01) ==
PROVIDERS: PCP Family Medicine; Visit Provider Anesthesiology
DX: M47.816 Spondylosis without myelopathy or radiculopathy, lumbar region (principal); M54.50 Low back pain, unspecified
CPT/HCPCS: 64493; 64494; J0665

== ENCOUNTER 2025-07-31 15:23 | Outpatient (OUT) | payer OTHER, SELFPAY ==
--- OUTSIDE RECORDS SUMMARY | 2025-07-31 15:27 | XMS_ITS | CCD ---
Author Organization [facility] Care Team Providers Care Contracts Specialist Name Role Phone LAKSHMIPATHY ., NARENDRANATH Admitting Sara vailable LAKSHMIPATHY ., NARENDRANATH Attending Sara vailable HOUSE, DR MEDELLIN Primary Care Unavailable ECHEVARRIA ., DR PAPA Martin Admitting Unavailable ECHEVARRIA ., DR PAPA Martin Attending Unavailable HOUSE, DR MEDELILN Primary Care Unavailable CORBIN ., SHAHID Consulting [...] source) Penicillins Drug allergy (disorder) 11-16-2016 The Repository (1 source) Penicillin; Translations: [penicillin] Drug Allergy [facility] Repository Problems Active Problems Problem Classification Problem [...] Interpretation Reference Range Facil ity Outside Recordson 07-29-2025 Outside Records [id number]#1 .[facility] 06-20-2025 Outside Records [id number]#1 .00[facility] Outside Recordson 03-29-2025 Outside Records [id number]# 1.[facility] 03-19-2025 Outside Records [id number]# 1.00[facility] Rad - Other Radiology Report on 02-06-2025 Rad - Other Radiology Report [id number]#1 .00[facility] Lab - Other Lab [facility] Lab - Other Lab Results [id number]# 1.00[facility] Miscellaneouson 01-28-2025 Miscellaneous [id number]# 1.00[facility] Encounters Encounter Date Encounter Type Care Provider Facility Start: 03-18-2025 End: 03-18-2025 ambulatory Anabel Stover MD Facility:[facility] Start: 01-28-2025 ambulatory DO VIGNESH PRAKASH Faci lity:[facility] Start: 07-31-2024 ambulatory DO VIGNESH PRAKASH Faci lity:[facility] Start: 03-31-2023 ambulatory OSITO PRUITT . Facility:[facility] Start: 12-30-2022 End: 12-31-[address] PAPA ECHEVARRIA . Facility:[facility] Start: 09-23-2022 End: 09-24-[address] PAPA ECHEVARRIA . Facility:[facility] Start: 06-17-2022 End: 06-18-[address] PAPA ECHEVARRIA . Facility:[facility] Start: 02-25-2022 End: 02-26-[address] PAPA ECHEVARRIA . Facility:[facility] Payers Date Payer Category Payer Private Health Insurance 2024 Unknown 2023 Unknown [id number] 2023 Private Health Insurance [id number] 1980 Unknown [id number] 2.16.84 [id number] 1980 Unknown [id number] 2.16.84 0.1.931310.3.579.2.593 1980 Unknown [id number] 2.16.84 0.1.206877.3.579.2.593 1980 Unknown [id number] 2.16.84 0.1.309449.3.579.2.593 1980 Unknown [id number] 2.16.84 0.1.916858.3.579.2.593 1980 Unknown [id number] 2.16. 840.1.876196.3.579.2.196 1980 Unknown [id number] 2.16.8 40.1.973874.3.579.2.718 1980 Unknown [id number] 2.16.8 40.1.644396.3.579.2.718 1959 Private Health Insurance [id number] 1959 Unknown [id number] Medication management note 05-31-2025 Note Date & Type Note Facility 05-31-2025 Note Entered by FELIX PRAKASH DO on May 31, 2025 12:00:01 EDT From: VIGNESH PRAKASH DO To: [facility]/pharmacy #[id number] Sent: 05/31/2025 12:00:01 EDT Subject: Medication Management Submitted: Complete:lisinopril (lisinopril 10 mg oral tablet) Signed by VIGNESH PRAKASH DO 05/31/2025 12:00:00 EDT Approved with modifications: lisinopril (LISINOPRIL 10 MG TABLET) TAKE 1 TABLET BY MOUTH EVERY DAY Qty: 90 tab(s) Days Supply: 90 Refills: 1 Substitutions Allowed Route To Pharmacy - [facility]/pharmacy #[id number] From: [facility] STORE [id number] To: VIGNESH PRAKASH DO Sent: May 30, 2025 11:28:24 PM CDT Subject: Medication Management Due: May 31, 2025 12:10:18 AM CDT On Hold Pending Signature Dispensed Drug: lisinopril (lisinopril 10 mg oral tablet), TAKE 1 TABLET BY MOUTH EVERY DAY Quantity: 90 tab(s) Days Supply: 90 Refills: 1 Substitutions Allowed Notes from Pharmacy: [facility] Medication management note 12-03-2024 Note Date & Type Note Facility 12-03-2024 Note Entered by FELIX PRAKASH DO on December 03, 2024 07:35:29 EST From: VIGNESH PRAKASH DO To: [facility]/pharmacy #[id number] Sent: 12/03/2024 07:35:29 EST Subject: Medication Management Submitted: Complete:lisinopril (lisinopril 10 mg oral tablet) Signed by VIGNESH PRAKASH DO 12/03/2024 07:35:00 EST Approved lisinopril (LISINOPRIL 10 MG TABLET) TAKE 1 TABLET BY MOUTH EVERY DAY Qty: 90 tab(s) Days Supply: 90 Refills: 1 Substitutions Allowed Route To Pharmacy - [facility]/pharmacy #[id number] From: [id number] To: VIGNESH PRAKASH DO Sent: December 02, 2024 6:33:57 AM CYBER LEGAL ADVISOR Subject: Medication Management Due: December 03, 2024 12:04:34 AM CYBER LEGAL ADVISOR On Hold Pending Signature Dispensed Drug: lisinopril (lisinopril 10 mg oral tablet), TAKE 1 TABLET BY MOUTH EVERY DAY Quantity: 90 tab(s) Days Supply: 90 Refills: 1 Substitutions Allowed Notes from Pharmacy: [facility] Consultation note 12-30-2022 Note Date & Type [...] be followed up in the clinic. The Consultation note 12-30-2022 Note Date & Type [...] indicated. Patient agrees with this plan. The Consultation note 09-23-2022 Note Date & Type [...] three months' time unless otherwise indicated. The Consultation note 09-23-2022 Note Date & Type [...] patient reported 100% relief of pain. The Consultation note 06-17-2022 Note Date & Type [...] procedure well with no overt complications. The Consultation note 06-17-2022 Note Date & Type [...] three months' time unless otherwise indicated. The Consultation note 02-25-2022 Note Date & Type [...] in 3 months' time unless otherwise indicated. [facility] Signed and Approved by: SHAHID CORBIN . 03/04/2022 17:08:00 The Summary Purpose Family History No Family History Records FoundNo Family History Records FoundNo Family History Records Found Advance Directives No Advanced Directives Records FoundNo Advanced Directives Records FoundNo Advanced Directives Records Found Additional Source Comments (unrecognized sect ion and content) No Status Records FoundNo Status Records FoundNo Status Records Found INFORMATION SOURCE (unrecogn ized section and content) DATE CREATED AUTHOR 01/08/2023 [facility] DATE CREATED AUTHOR AUTHOR'S ORGANIZ ATION 03/25/2025 DATE CREATED AUTHOR AUTHOR'S ORGANIZ ATION 07/30/2025 [facility] FOR RECORDS PERTAINING TO PATIENTS WHO [...] BE BASED ON THE PRIMARY CLINICAL RECORDS. [employer] [facility]. provides no warranty or guarantee of the accuracy or completeness of information in this document.
--- NOTE | 2025-07-31 15:49 | PM.CN ---
Consult Note: HPI Data of Consult Patient: known to practice within the last 3 years Requesting Physician: Jen Goddard NP Primary Care Provider: VIGNESH PRAKASH Consult Narrative Reason for consult: f/u Narrative: Alonzo Coy a pleasant 44 year old male presents for evaluation of low back pain. longstanding low back pain >12 months unresponsive to > 6 weeks of heat, ice, tylenol, motrin, and PT/provider guided HEP. continues to utilize tylenol, celebrex, tramadol, and flexeril with benefit without side effects. pain today 4/10 stiff increasing to 10/10 in the am when waking and by bedtime, bending, weather changes, sitting. recently underwent bilateral L4-5 L5-S1 MBB #1 with 100% improvement in pain for 20 hours per pt. preop pain up to 10/10 post op pain 0/10. cc:: CC: Jen Goddard NP Review of Systems ROS Musculoskeletal Reports: back pain PFSH PFSH Medical History Lumbar spondylosis ?M47.816 - Spondylosis without myelopathy or radiculopathy, lumbar region (ICD-10) Meds Home Medications and Allergies Home Medications ?Medication ?Instructions ?Recorded ?Confirmed ?Type lisinopril 5 mg tablet 5 mg PO DAILY 07/08/23 07/29/25 History diclofenac sodium 75 mg 75 mg PO BID PRN pain #60 tabs 08/30/24 07/29/25 Rx tablet,delayed release naloxone 4 mg/actuation nasal 4 mg intranasal Q2M PRN opioid 08/30/24 07/29/25 Rx spray (Narcan) overdose #1 ea cyclobenzaprine 10 mg tablet 10 mg PO BID PRN muscle spasm #60 03/04/25 07/29/25 Rx tabs celecoxib 100 mg capsule (Celebrex) 100 mg PO BID #60 caps 04/24/25 07/29/25 Rx tramadol 50 mg tablet 50 mg PO TID PRN pain #90 tabs 04/24/25 07/29/25 Rx tramadol 50 mg tablet 50 mg PO TID PRN pain #90 tabs 07/18/25 07/29/25 Rx Allergies Allergy/AdvReac Type Severity Reaction Status Date / Time Penicillins Allergy Unknown Unknown Verified 07/29/25 08:07 Exam Constitutional Documenting provider has reviewed patient's vital signs: yes Common normals: no apparent distress, oriented x3, healthy appearing, alert and well nourished General appearance: cooperative HENMT Common normals: normocephalic, hearing grossly normal bilaterally and moist oral mucous membranes Head and scalp: normocephalic Eye Common normals: PERRL Pupil: PERRL Neck & C-Spine Common normals: full ROM General: normal visual inspection Chest Common normals: inspection of chest normal Respiratory Common normals: normal respiratory effort, no retractions and no use of accessory muscles Back & Pelvis Lumbar spine/lower back: ROM limited, pain with ROM, lumbar spinal tenderness and straight leg raise negative bilaterally Sacroiliac joints: SI joints normal Other: sensation intact bilateral facet loading bilateral L2-5 Extremity Common normals: normal to inspection and full ROM Neuro Common normals: oriented x3 Sensorium/orientation: alert Motor exam: no movement abnormalities noted Psych Common normals: mental status grossly normal, thought process normal, cooperative, affect normal, speech normal and activity/motor behavior normal Speech: normal speech Thought process: normal thought process Results Additional Findings Additional findings: If on a controlled substance or opioids, I have checked an [place]AR[place] report on this patient and there are no aberrancies noted in the prescribing history.??If on a controlled substance or opioid a drug screen was completed and reviewed within the last year, and if there has not been a drug screen completed we ordered one today to monitor higher risk, state monitored pain medication use. As part of providing excellent, safe, comprehensive care, the following was completed at our patient's visit: 1. A medication reconciliation and review to ensure accurate knowledge of current/active medications, including asking our patients to inform us about any ljhf-ckx-bimtggw medications or herbal remedies/nutritional supplements/alternative remedies. 2. A review to specifically ensure our patients have had annual screening for screening for depression, screening for tobacco use, and screening for unhealthy alcohol use. For concerning screenings had a discussion with the patient, provided patient education, and recommended follow-up with primary care provider when appropriate. If patient noted with a risk of falling, they received education on strength, gait, and balance training to prevent future risk of falling. Portions of this note may have been carried over from the previous visit and updated as appropriate. Please note this office utilizes paper charting in addition to the electronic medical record. A list of current medications, vitals, and PMH is available there as the clinical staff outside of myself do not have access to [employer] charting during the clinic day operations. As part of providing quality comprehensive care the current medications, vitals, and PMH were reviewed in the paper chart. Assessment and Plan Assessment and Plan (1) Lumbar spondylosis: Assessment and Plan: The patient has had over 3 months of moderate to severe low back pain with functional impairment and inadequate response to conservative care including NSAIDS (unless there are contraindication such as concurrent blood thinners), multiple oral or topical pain medications, and home exercise program/physical therapy.? Patient has completed >6 weeks of guided home exercise program and/or formal physical therapy program without relief of their symptoms.? The Oswestry Disability Index was completed, and the patient scored a 29%.? (2) Lumbar stenosis with neurogenic claudication: (3) Myalgia, other site: (4) Encounter for long-term use of opiate analgesic: Assessment and Plan: I feel these medications are improving the patient's quality of life and allow them to tolerate activities of daily living as well as participate in recreational activity.? The patient does not report intolerable side effects. The patient is NOT opioid naive and non-pharmacologic and non-opioid treatment has failed to significantly relieve the patient's pain and improve functionality. The patient has a diagnosis that is related to a somatic or visceral pain etiology. ? ?? I reviewed with the patient the potential risks and side effects with the use of? opioid medications including but not limited to respiratory depression,? sedation, and even . Within the last 12 months I have verified the patient has access to naloxone should? these effects occur. The patient was advised to let? their family know they had Naloxone in case they would need to administer? the medication. I advised the patient to avoid the use of any other? sedation substances including alcohol, THC, and benzodiazepines while? taking opioid medications due to the risk of compounding side effects and? detrimental outcomes. within the last 12 months I have reviewed the WAREHOUSE ENGINEER, pain treatment agreement and urine drug screen.? ?? A drug screen was completed within the last year, and no aberrancies were noted regarding their use of controlled substances. The patient understands they are subject to the terms and conditions of the pain contract that they have signed. ? ?? I have checked an OARRS report on this patient today and there are no aberrancies noted in the prescribing history.? Plan bilateral L4-5 L5-S1 mbb x2 under fluoroscopy in consideration of rfa for facet mediated low back pain continue current medications, risks vs benefits reviewed. continues to find benefit and denies side effects continue home exercise program as tolerated f/u after each MBB
== END 2025-07-31 15:24 | disposition home or self-care (01) ==
LOC: PM 15:23
PROVIDERS: PCP Family Medicine; Visit Provider Nurse Practitioner
DX: M47.816 Spondylosis without myelopathy or radiculopathy, lumbar region (principal); M48.062 Spinal stenosis, lumbar region with neurogenic claudication; M79.10 Myalgia, unspecified site; Z79.891 Long term (current) use of opiate analgesic
CPT/HCPCS: G0463

== ENCOUNTER 2025-08-12 07:57 | Day surgery (SDC) | payer OTHER, SELFPAY ==
[2025-08-12 08:03] VITALS: BP 120/79; PULSE 93; TEMP 36.7; O2SAT 98
--- OUTSIDE RECORDS SUMMARY | 2025-08-12 08:03 | XMS_ITS | CCD ---
Author Organization [facility] Care Team Providers Care Jet Pilot Name Role Phone LAKSHMIPATHY ., NARENDRANATH Admitting Sara vailable LAKSHMIPATHY ., NARENDFRANKIEATH Attending Sara vailable HOUSE, DR MEDELLIN Primary Care Unavailable ECHEVARRIA ., DR PAPA Martin Admitting Unavailable ECHEVARRIA ., DR PAPA Martin Attending Unavailable HOUSE, DR MEDELLIN Primary Care Unavailable CORBIN ., SHAHID Consulting Unavailable ECHEVARRIA ., DR PAPA Martin Admitting Unavailable ECHEVARRIA ., DR PAPA Martin Attending Unavailable HOUSE, DR MEDELLIN Primary Care Unavailable CORIBN ., SHAHID Consulting Unavailable ECHEVARRIA ., DR PAPA Martin Admitting Unavailable ECHEVARRIA ., DR PAPA Martin Attending Unavailable HOUSE, DR MEDELLIN Primary Care Unavailable CORBIN ., SHAHID Consulting Unavailable ECHEVARRIA ., DR PAPA Martin Admitting Unavailable ECHEVARRIA ., DR PAPA Martin Attending Unavailable HOUSE, DR MEDELLIN Primary Care Unavailable CORBIN ., SHAHID Consulting Unavailable Ck AMAYA, Anabel Rincon Attending Unavailable Ck AMAYA, Anabel Rincon Attending Unavailable HOUSE, DO VIGNESH Dawkins Attending Unavailable HOUSE, VIGNESH Dawkins Primary Care Unavailable Allergies Allergy ClassificationReported Allergen(s)Allergy TypeDate of OnsetReaction(s) Facility (1 source)PenicillinsDrug allergy (disorder)60-27-9199[facility] Repository (1 source)Penicillin; Translations: [[facility] Problems Active Problems Problem ClassificationProblemDateDocumented DateEpisodic/ChronicOther nervous system disorders (1 source)Other chronic pain; Translations: [OTHER CHRONIC PAIN]Onset: 09-08-1832SsurqbrKxmpcmflefo; intervertebral disc disorders; other back problems (2 sources)Spondylosis without myelopathy or radiculopathy, lumbar region; Translations: [Other intervertebraldisc degeneration, lumbar region]Onset: 75-96-9249BgfqzwnPjpycuqwsqf; intervertebral disc disorders; other back problems (4 sources)Muscle spasm of back; Translations: [MUSCLE SPASM OF BACK]Onset: 94-25-2447UcdhappqWelxecjdtajt (1 source)LOW BACK PAIN, UNSPECIFIED; Translations: [LOW BACK PAIN, UNSPECIFIED] Onset: 01-07-2023 Past or Other Problems Problem ClassificationProblemDateDocumented DateEpisodic/ChronicOther connective tissue disease (4 sources)Bicipital tendinitis, left shoulder; Translations: [BICIPITAL TENDINITIS LEFT SHOULDER]Onset: 70-45-5526Atrzslfq Results Test NameValueInterpretationReference RangeFacilityOutside Recordson 08-01-2025 Outside [id number]#1.00[facility] 50-14-9799Jhhsjnt Records [id number]#1.00[facility] Outside Recordson 71-60-2120Miqlnam Records [id number]#1.00[facility] Outside Recordson 73-90-5879Mnzwtfz Records [id number]#1.00[facility] Outside Recordson 59-43-6038Bfiotyz Records [id number]#1.00[facility] Other Radiology Reporton 78-51-3248Cvk - Other Radiology Report [id number]#1.00[facility] Lab Resultson 58-69-7630Eae - Other Lab Results [id number]#1.00[facility] Miscellaneouson 07-66-2874Cqdyfxdedpyvo [id number]#1.00[facility] En[facility] Encounter DateEncounter TypeCare ProviderFacilityStart: 07-29-2025 End: 77-37-5961qbodsertluBjqtelm Vytautas Giedraitis MDFacility:[employer] Start: 03-18-2025 End: 96-99-9068eehisxbynkOtpvnwf Vytautas Giedraitis MDFacility:[employer] Start: 90-83-3944uxahknhberIQ VIGNESH Dawkins HOUSEFacility:[facility] ClinicStart: 32-46-2351vyawnfabwxMBRAJQHYPDYT LAKSHMIPATHY .Facility:I2Aixyp: 12-30-2022 End: 18-08-7760lvfmksalgnZX PAPA S ECHEVARRIA .Facility:J6Tgzgv: 09-23-2022 End: 04-01-2170hnsnymrccoFK PAPA S ECHEVARRIA .Facility:P1Dpwru: 06-17-2022 End: 97-97-9825vufwjyzvaqXJ PAPA S ECHEVARRIA .Facility:U7Qbdzv: 02-25-2022 End: 91-00-0010nrfjmgvmnuWS PAPA S ECHEVARRIA .Facility: Payers DatePayer CategoryPayerPolicy [id number] Health [id number] [id number] Health [id number] 2..1.676466.3.57[id number] 2..1.446978.3.5[id number] 2..1.619763.3.57[id number] 2..1.619198.3.57[id number] 2..1.659431.3.57[id number] 2.16.840.1.570568.3.57[id number] 2.16.840.1.465780.3.57[id number] 2.16.840.1.102382.3.579.2.77783-54-4947Qwcbhyb Health [id number] [id number] Medication management note 05-31-2025 Note Date & DfwxQvnwWrigvsdk15-58-1531 NoteEntered by VIGNESH PRAKASH DO on May 31, 2025 12:00:01 EDT From: VIGNESH [facility]AKASH DO [id number] Sent: 05/31/2025 12:00:01 EDT Subject: Medication Management Submitted: Complete:lisinopril (lisinopril 10 mg oral tablet) Signed by VIGNESH PRAKASH DO 05/31/2025 12:00:00 EDT Approved with modifications: lisinopril (LISINOPRIL 10 MG TABLET) TAKE 1 TABLET BY MOUTH EVERY DAY Qty: 90 tab(s) Days Supply: 90 Refills: 1 Substitutions [facility]owed [id number] To: VIGNESH PRAKASH DO Sent: May 30, 2025 11:28:24 PM CDT Subject: Medication Management Due: May 31, 2025 12:10:18 AM CDT On Hold Pending Signature Dispensed Drug: lisinopril (lisinopril 10 mg oral tablet), TAKE 1 TABLET BY MOUTH EVERY DAY Quantity: 90 tab(s) Days Supply: 90 Refills: 1 Substitutions Allowed Notes from Pharmacy: [facility] Medication management note 12-03-2024 Note Date & AfxtTthiTtrxauhw43-97-9559 NoteEntered by VIGNESH PRAKASH DO on December 03, 2024 07:35:29 EST From: VIGNESH PRAKASH DO To: [facility]/pharmacy #[id number] Sent: 12/03/2024 07:35:29 EST Subject: Medication Management Submitted: Complete:lisinopril (lisinopril 10 mg oral tablet) Signed by VIGNESH PRAKASH DO 12/03/2024 07:35:00 EST Approved lisinopril (LISINOPRIL 10 MG TABLET) TAKE 1 TABLET BY MOUTH EVERY DAY Qty: 90 tab(s) Days Supply: 90 Refills: 1 Substitutions Allowed Route To Pharmacy - [facility]/pharmacy #[id number] From: [id number] To: VIGNESH PRAKASH DO Sent: December 02, 2024 6:33:57 AM ADULT NEUROLOGIST Subject: Medication Management Due: December 03, 2024 12:04:34 AM ADULT NEUROLOGIST On Hold Pending Signature Dispensed Drug: lisinopril (lisinopril 10 mg oral tablet), TAKE 1 TABLET BY MOUTH EVERY DAY Quantity: 90 tab(s) Days Supply: 90 Refills: 1 Substitutions Allowed Notes from Pharmacy: [facility] Consultation note 12-30-2022 Note Date & JiwnPdgzRnyaylwd04-29-0380 NoteCONSULTATION PROCEDURE DATE: 12/30/2022 PREOPERATIVE DIAGNOSIS: Right lumbar [...] He will be followed up in the clinic.[facility] Consultation note 12-30-2022 Note Date & YxklMrwwVjoiygae35-39-3694 NoteCONSULTATION CONSULTATION DATE: 12/30/2022 HISTORY: This is a [...] unless otherwise indicated. Patient agrees with this plan.[facility] Consultation note 09-23-2022 Note Date & XyxxSdovLtcgxddi28-21-4170 NoteCONSULTATION CONSULTATION DATE: 09/23/2022 HISTORY OF PRESENT ILLNESS: [...] up in three months' time unless otherwise indicated.[facility] Consultation note 09-23-2022 Note Date & JeluYvasRnwrfszr93-75-0186 NoteCONSULTATION PROCEDURE DATE: 09/23/2022 PREOPERATIVE DIAGNOSIS: Left bicipital [...] patient reported 100% relief of pain. [facility] Consultation note 06-17-2022 Note Date & YhpxCqedXjmfmogn25-25-7506 NoteCONSULTATION PROCEDURE DATE: 06/17/2022 PREOPERATIVE DIAGNOSIS: Left biceps [...] tolerated the procedure well with no overt complications.[facility] Consultation note 06-17-2022 Note Date & ZnckKryqGzqvspro03-49-4540 NoteCONSULTATION CONSULTATION DATE: HISTORY OF PRESENT ILLNESS: This [...] office in three months' time unless otherwise indicated.[facility] Consultation note 02-25-2022 Note Date & JmmfXfulImusfgse92-71-4348 NoteCONSULTATION CONSULTATION DATE: 02/25/2022 This is a pleasant [...] in 3 months' time unless otherwise indicated. [facility] Signed and Approved by: SHAHID CORBIN . 03/04/2022 17:08:00[facility] Summary Purpose Family History No Family History Records FoundNo Family History Records FoundNo Family History Records Found Advance Directives No Advanced Directives Records FoundNo Advanced Directives Records FoundNo Advanced Directives Records Found Additional Source Comments (unrecognized sect ion and content) No Status Records FoundNo Status Records FoundNo Status Records Found INFORMATION SOURCE (unrecogn ized section and content) DATE CREATED AUTHOR 01/08/2023 [facility] DATE CREATED AUTHOR AUTHOR'S ORGANIZ ATION 08/03/2025 [facility] DATE CREATED AUTHOR AUTHOR'S ORGANIZ ATION 08/03/2025 [facility] FOR RECORDS PERTAINING TO PATIENTS [...] ON THE PRIMARY CLINICAL RECORDS. [facility] [employer] [facility]. provides no warranty or guarantee of the accuracy or completeness of information in this document.
[2025-08-12 09:17] VITALS: BP 112/72; PULSE 72; O2SAT 95
[2025-08-12 09:18] VITALS: BP 111/67; PULSE 78; O2SAT 94
[2025-08-12] MEDS: BUPIVACAINE HCL 0.25% PF 25 MG/10 ML VIAL 8 ML INJ (09:20)
[2025-08-12] MEDS: LIDOCAINE HCL 2% 400 MG/20 ML MDV INJ (09:20)
--- NOTE | 2025-08-12 09:20 | W.PM.PROCNOT ---
Date of procedure: 08/12/25 Pre-op diagnosis: Pain due to lumbar spondylosis without myelopathy Post-op diagnosis: same as pre-op Procedure: Procedure: Bilateral L4-5, L5-S1 medial branch block Medications: Bupivacaine 0.25% 6cc The patient was seen and examined in the preoperative holding area.? An informed consent was obtained and placed on the chart.? The patient was brought to the medical procedure unit and placed in the prone position.? A timeout was completed verifying correct patient, procedure site, positioning, plan, and special equipment.? Using aseptic technique, the needle was placed at left L4. Under direct fluoroscopic visualization a Quincke-tipped spinal needle was advanced to the junction of the superior articulating process with the transverse process at the designated medial branch segment.? Preceded by negative aspiration, the above-mentioned injectate was placed in 1 mL aliquots.? The procedure was repeated at left L5, S1.? The needle was removed and insertion site was covered. The same procedure, at the same levels, was completed on the right side. The patient was taken to the postprocedural recovery area and monitored for an appropriate length of time before found suitable for discharge in the company of a responsible adult. Anesthesia: Local Surgeon: Anabel Stover Pathology: none sent Condition: stable Disposition: no change
== END 2025-08-12 09:23 | disposition home or self-care (01) ==
PROVIDERS: PCP Family Medicine; Visit Provider Anesthesiology
DX: M47.816 Spondylosis without myelopathy or radiculopathy, lumbar region (principal); M54.50 Low back pain, unspecified
CPT/HCPCS: 64493; 64494; J0665

== ENCOUNTER 2025-08-14 15:18 | Outpatient (OUT) | payer OTHER, SELFPAY ==
--- NOTE | 2025-08-14 15:39 | P.CN_ITS ---
Consult Note: HPI Data of Consult Patient: known to practice within the last 3 years Consult date: 08/14/25 Requesting Physician: Jen Goddard NP Primary Care Provider: VIGNESH PRAKASH Consult Narrative Reason for consult: f/u Narrative: Alonzo campo pleasant 44 year old male presents for evaluation of low back pain. longstanding low back pain >12 months unresponsive to > 6 weeks of heat, ice, tylenol, motrin, and PT/provider guided HEP. continues to utilize tylenol, celebrex, tramadol, and flexeril with benefit without side effects. pain today 5/10 stiff increasing to 10/10 in the am when waking and by bedtime, bending, weather changes, sitting. recently underwent bilateral L4-5 L5-S1 MBB #1 with 100% improvement in pain for 5 hours per pt. preop pain up to 10/10 post op pain 0/10. cc:: CC: Jen Goddard NP Review of Systems ROS Musculoskeletal Reports: [facility] Medical History Lumbar spondylosis ?M47.816 - Spondylosis without myelopathy or radiculopathy, lumbar region (ICD-10) Meds Home Medications and Allergies Home Medications ?Medication ?Instructions ?Recorded ?Confirmed ?Type lisinopril 5 mg tablet 5 mg PO DAILY 07/08/2308/12 History diclofenac sodium 75 mg 75 mg PO BID PRN pain #60 ta bs 08/30/24 08/12/25 Rx tablet,delayed release Held on 08/12/25. Instructions: not taking naloxone 4 mg/actuation nasal 4 mg intranasal Q2M PRN opioid 08/30/24 08/12/25 Rx spray (Narcan) overdose #1 ea cyclobenzaprine 10 mg tablet 10 mg PO BID PRN muscle s pasm #60 03/04/25 08/12/25 Rx tabs celecoxib 100 mg capsule (Celebrex) 100 mg PO BID #60 caps 04/24/25 08/12/25 Rx tramadol 50 mg tablet 50 mg PO TID PRN pain #90 ta bs 04/24/25 08/12/25 Rx tramadol 50 mg tablet 50 mg PO TID PRN pain #90 ta bs 07/18/25 08/12/25 Rx Allergies Allergy/AdvReac Type Severity Reaction Status Date / Time Penicillins Allergy Unknown Unknown Verified 08/12/25 08:00 Exam Constitutional Documenting provider has reviewed patient's vital signs: yes Common normals: no apparent distress, oriented x3, healthy appearing, alert and well nourished General appearance: cooperative HENMT Common normals: normocephalic, hearing grossly normal bilaterally and moist oral mucous membranes Head and scalp: normocephalic Eye Common normals: PERRL Pupil: PERRL Neck & C-Spine Common normals: full ROM General: normal visual inspection Chest Common normals: inspection of chest normal Respiratory Common normals: normal respiratory effort, no retractions and no use of accessory muscles Back & Pelvis Lumbar spine/lower back: ROM limited, pain with ROM, lumbar spinal tenderness and straight leg raise negative bilaterally Sacroiliac joints: SI joints normal Other: sensation intact bilateral facet loading bilateral L2-5 Extremity Common normals: normal to inspection and full ROM Neuro Common normals: oriented x3 Sensorium/orientation: alert Motor exam: no movement abnormalities noted Psych Common normals: mental status grossly normal, thought process normal, cooperative, affect normal, speech normal and activity/motor behavior normal Speech: normal speech Thought process: normal thought process Results Additional Findings Additional findings: If on a controlled substance or opioids, I have checked an [place]AR[place] report on this patient and there are no aberrancies noted in the prescribing history.??If on a controlled substance or opioid a drug screen was completed and reviewed within the last year, and if there has not been a drug screen completed we ordered one today to monitor higher risk, state monitored pain medication use. As part of providing excellent, safe, comprehensive care, the following was completed at our patient's visit: 1. A medication reconciliation and review to ensure accurate knowledge of current/active medications, including asking our patients to inform us about any jhnv-jar-jsuufbj medications or herbal remedies/nutritional supplements/alternative remedies. 2. A review to specifically ensure our patients have had annual screening for screening for depression, screening for tobacco use, and screening for unhealthy alcohol use. For concerning screenings had a discussion with the patient, provided patient education, and recommended follow-up with primary care provider when appropriate. If patient noted with a risk of falling, they received education on strength, gait, and balance training to prevent future risk of falling. Portions of this note may have been carried over from the previous visit and updated as appropriate. Please note this office utilizes paper charting in addition to the electronic medical record. A list of current medications, vitals, and PMH is available there as the clinical staff outside of myself do not have access to [employer] charting during the clinic day operations. As part of providing quality comprehensive care the current medications, vitals, and PMH were reviewed in the paper chart. Assessment and Plan Assessment and Plan (1) Lumbar spondylosis: Assessment and Plan: The patient has had over 3 months of moderate to severe low back pain with functional impairment and inadequate response to conservative care including NSAIDS (unless there are contraindication such as concurrent blood thinners), multiple oral or topical pain medications, and home exercise program/physical therapy.? Patient has completed >6 weeks of guided home exercise program and/or formal physical therapy program without relief of their symptoms.? The Oswestry Disability Index was completed, and the patient scored a 24%.? (2) Lumbar stenosis with neurogenic claudication: (3) Myalgia, other site: (4) Encounter for long-term use of opiate analgesic: Assessment and Plan: I feel these medications are improving the patient's quality of life and allow them to tolerate activities of daily living as well as participate in recreational activity.? The patient does not report intolerable side effects. The patient is NOT opioid naive and non-pharmacologic and non-opioid treatment has failed to significantly relieve the patient's pain and improve functionality. The patient has a diagnosis that is related to a somatic or visceral pain etiology. ? ?? I reviewed with the patient the potential risks and side effects with the use of? opioid medications including but not limited to respiratory depression,? sedation, and even . Within the last 12 months I have verified the patient has access to naloxone should? these effects occur. The patient was advised to let? their family know they had Naloxone in case they would need to administer? the medication. I advised the patient to avoid the use of any other? sedation substances including alcohol, THC, and benzodiazepines while? taking opioid medications due to the risk of compounding side effects and? detrimental outcomes. within the last 12 months I have reviewed the [employer] REPAIRER, pain treatment agreement and urine drug screen.? ?? A drug screen was completed within the last year, and no aberrancies were noted regarding their use of controlled substances. The patient understands they are subject to the terms and conditions of the pain contract that they have signed. ? ?? I have checked an OARRS report on this patient today and there are no aberrancies noted in the prescribing history.? Plan bilateral L4-5 L5-S1 rfa for facet mediated low back pain continue current medications, risks vs benefits reviewed. continues to find benefit and denies side effects continue home exercise program as tolerated f/u 1 month after RFA
== END 2025-08-14 15:19 | disposition home or self-care (01) ==
LOC: PM 15:19
PROVIDERS: PCP Family Medicine; Visit Provider Nurse Practitioner
DX: M47.816 Spondylosis without myelopathy or radiculopathy, lumbar region (principal); M48.062 Spinal stenosis, lumbar region with neurogenic claudication; M79.18 Myalgia, other site; Z79.891 Long term (current) use of opiate analgesic
CPT/HCPCS: G0463

== ENCOUNTER 2025-08-26 09:57 | Day surgery (SDC) | payer OTHER, SELFPAY ==
--- OUTSIDE RECORDS SUMMARY | 2025-08-26 10:06 | XMS_ITS | CCD ---
Author Organization [facility] Care Team Providers Care Lan Manager Name Role Phone LAKSHMIPATHY ., NARENDRANATH Admitting [...] DR MEDELLIN Primary Care Unavailable CORBIN ., HSAHID Consulting Unavailable ECHEVARRIA ., DR PAPA Martin [...] TypeDate of OnsetReaction(s) Facility (1 source)PenicillinsDrug allergy (disorder)14-91-9414[facility] Repository (1 source)Penicillin; Translations: [penicillin][facility] Problems Active Problems Problem ClassificationProblemDateDocumented DateEpisodic/ChronicOther nervous system disorders (1 source)Other chronic pain; Translations: [OTHER CHRONIC PAIN]Onset: 29-88-1396DpzpdbeJnmtfgfaczk; intervertebral disc disorders; other back problems (2 sources)Spondylosis without myelopathy or radiculopathy, lumbar region; Translations: [Other intervertebraldisc degeneration, lumbar region]Onset: 33-39-2622FwsmmgxDjjiqikjivh; intervertebral disc disorders; other back problems (4 sources)Muscle spasm of back; Translations: [MUSCLE SPASM OF BACK]Onset: 56-64-3041BkkxhsrcHuwrapiamgpj (1 source)LOW BACK PAIN, UNSPECIFIED; Translations: [LOW BACK PAIN, UNSPECIFIED] Onset: 01-07-2023 Past or Other Problems Problem ClassificationProblemDateDocumented DateEpisodic/ChronicOther connective tissue disease (4 sources)Bicipital tendinitis, left shoulder; Translations: [BICIPITAL TENDINITIS LEFT SHOULDER]Onset: 69-52-1791Fscignio Results Test NameValueInterpretationReference RangeFacilityOutside Recordson 08-12-2025 Outside [id number]#1.00[facility] Record[facility] 47-68-7439Opcbgwv Records [id number]#1.00[facility] Outside Recordson 57-25-5335Wqlesjo Records [id number]#1.00[facility] Outside Recordson 46-73-4120Jlqprwo Records [id number]#1.00[facility] Outside Recordson 69-19-6860Hdvyzik Records [id number]#1.00[facility] Outside Recordson 79-01-3331Tdzqeew Records [id number]#1.00[facility] - Other Radiology Reporton 21-12-7104Fmc - Other Radiology Report [id number]#1.00[facility] Other Lab Resultson 44-45-5418Stn - Other Lab Results [id number]#1.00[facility] Miscellaneouson 54-65-0389Zjthlansuojha [id number]#1.00[facility] Encounters Encounter DateEncounter TypeCare ProviderFacilityStart: 07-29-2025 End: 02-63-3347xizjkdzbbgCukthpv Vytautas Giedraitis MDFacility:[facility] Start: 03-18-2025 End: 77-87-3694uujocvkxchOqutyto Vytautas Giedraitis MDFacility:[facility] Start: 99-52-0016buxhziyleuPP VIGNESH P HOUSEFacility:[facility] ClinicStart: 22-22-3691nzuuxkeuscRFEMYABZCNRE EVEMIPATHY .Facility:X2Sfpto: 12-30-2022 End: 11-57-0022bvrtmeszlpEH PAPA Mario ECHEVARRIA .Facility:I4Elkyr: 09-23-2022 End: 13-87-1091ivxztmywrmVM PAPA S ECHEVARRIA .Facility:I8Ocmdd: 06-17-2022 End: 80-19-5017clnhswweirOG PAPA S ECHEVARRIA .Facility:K2Xojip: 02-25-2022 End: 93-85-8545gpsgomjobpMQ PAPA S ECHEVARRIA .Facility: Payers DatePayer CategoryPayerPolicy [id number] Health [id number] [id number] Health [id number] [id number] .1.587017.3.57[id number] .1.359414.3.57[id number] .1.476441.3.57[id number] .1.851266.3.57[id number] 2.16.840.1.487534.3.57[id number] 2.16.840.1.605606.3.57[id number] 2.16.840.1.869295.3.57[id number] 2.16.840.1.074261.3.579.2.15172-66-0901Nlkophx Health [id number] [id number] Medication management note 05-31-2025 Note Date & PbqcMxdoFcfrsjgz43-95-9029 NoteEntered by VIGNESH PRAKASH DO on May 31, 2025 12:00:01 EDT From: VIGNESH PRAKASH DO To: [facility]/pharmacy #[id number] Sent: 05/31/2025 12:00:01 EDT Subject: Medication Management Submitted: Complete:lisinopril (lisinopril 10 mg oral tablet) Signed by VIGNESH PRAKASH DO 05/31/2025 12:00:00 EDT Approved with modifications: lisinopril (LISINOPRIL 10 MG TABLET) TAKE 1 TABLET BY MOUTH EVERY DAY Qty: 90 tab(s) Days Supply: 90 Refills: 1 Substitutions Allowed Route To Pharmacy - [facility]/pharmacy #[id number] From: [id number] To: VIGNESH PRAKASH DO Sent: May 30, 2025 11:28:24 PM CDT Subject: Medication Management Due: May 31, 2025 12:10:18 AM CDT On Hold Pending Signature Dispensed Drug: lisinopril (lisinopril 10 mg oral tablet), TAKE 1 TABLET BY MOUTH EVERY DAY Quantity: 90 tab(s) Days Supply: 90 Refills: 1 Substitutions Allowed Notes from Pharmacy: [facility] Medication management note 12-03-2024 Note Date & DoinNiljRswxopvq52-81-8540 NoteEntered by IVGNESH PRAKASH DO on December 03, 2024 07:35:29 EST From: VIGNESH PRAKASH DO To: [facility]/pharmacy #[id number] Sent: 12/03/2024 07:35:29 EST Subject: Medication Management Submitted: Complete:lisinopril (lisinopril 10 mg oral tablet) Signed by VIGNESH PRAKASH DO 12/03/2024 07:35:00 EST Approved lisinopril (LISINOPRIL 10 MG TABLET) TAKE 1 TABLET BY MOUTH EVERY DAY Qty: 90 tab(s) Days Supply: 90 Refills: 1 Substitutions Allowed Route To Pharmacy - [facility]/pharmacy #[id number] From: [id number] To: VIGNESH PRAKASH DO Sent: December 02, 2024 6:33:57 AM 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 Subject: Medication Management Due: December 03, 2024 12:04:34 AM 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 On Hold Pending Signature Dispensed Drug: lisinopril (lisinopril 10 mg oral tablet), TAKE 1 TABLET BY MOUTH EVERY DAY Quantity: 90 tab(s) Days Supply: 90 Refills: 1 Substitutions Allowed Notes from Pharmacy: [facility] Consultation note 12-30-2022 Note Date & GsglCwrgTymcoawn49-66-2590 NoteCONSULTATION PROCEDURE DATE: 12/30/2022 PREOPERATIVE DIAGNOSIS: Right [...] will be followed up in the clinic.[facility] Consultation note 12-30-2022 Note Date & KlvhJxipQqljphrp00-17-3105 NoteCONSULTATION CONSULTATION DATE: 12/30/2022 HISTORY: This is [...] otherwise indicated. Patient agrees with this plan.[facility] Consultation note 09-23-2022 Note Date & YgumAjphAujaptwi16-97-5946 NoteCONSULTATION CONSULTATION DATE: 09/23/2022 HISTORY OF PRESENT [...] in three months' time unless otherwise indicated.[facility] Consultation note 09-23-2022 Note Date & JrqfYkmxGwabpmev70-10-3251 NoteCONSULTATION PROCEDURE DATE: 09/23/2022 PREOPERATIVE DIAGNOSIS: Left [...] patient reported 100% relief of pain. [facility] Consultation note 06-17-2022 Note Date & KxilUhrfXpxzloug91-53-2839 NoteCONSULTATION PROCEDURE DATE: 06/17/2022 PREOPERATIVE DIAGNOSIS: Left [...] the procedure well with no overt complications.[facility] Consultation note 06-17-2022 Note Date & OrvrNtcnRocgeaio02-72-9442 NoteCONSULTATION CONSULTATION DATE: HISTORY OF PRESENT ILLNESS: [...] in three months' time unless otherwise indicated.[facility] Consultation note 02-25-2022 Note Date & RyamJdwiNsbdzigo43-73-2291 NoteCONSULTATION CONSULTATION DATE: 02/25/2022 This is a [...] in 3 months' time unless otherwise indicated. [facility] Signed and Approved by: SHAHID CORBIN . 03/04/2022 17:08:00[facility] Summary Purpose Family History No [...] and content) DATE CREATED AUTHOR 01/08/2023 [facility] DATE CREATED AUTHOR AUTHOR'S ORGANIZ ATION 08/03/2025 [facility] DATE CREATED AUTHOR AUTHOR'S ORGANIZ ATION 08/13/2025 [facility] FOR RECORDS PERTAINING TO PATIENTS WHO [...] BE BASED ON THE PRIMARY CLINICAL RECORDS. [facility] [employer] provides no warranty or guarantee of the accuracy or completeness of information in this document.
[2025-08-26 10:18] VITALS: BP 146/87; PULSE 96; TEMP 37; O2SAT 99
[2025-08-26 10:51] VITALS: BP 138/80; PULSE 80; PULSE 90; O2SAT 98
[2025-08-26 10:52] VITALS: BP 126/82
[2025-08-26] MEDS: LIDOCAINE HCL 2% 400 MG/20 ML MDV 12 ML INJ (10:53)
[2025-08-26] MEDS: BUPIVACAINE HCL 0.25% PF 25 MG/10 ML VIAL 4 ML INJ (11:01)
[2025-08-26] MEDS: METHYLPREDNISOLONE ACETATE 40 MG/ML VIAL INJ (11:02)
--- NOTE | 2025-08-26 11:07 | P.ON_ITS ---
Date of procedure: 08/26/25 Pre-op diagnosis: Pain due to lumbar spondylosis without myelopathy Post-op diagnosis: same as pre-op Procedure: Procedure: Bilateral L4-5, L5-S1 radiofrequency ablation Medications: Bupivacaine 0.25% 4cc, depomedrol 80mg, lidocaine 2% 6cc The patient was seen and examined in the preoperative holding area.? The site was marked.? Written informed consent was obtained and placed on the chart.? The patient was brought to the medical procedure unit and placed in the prone position.? A timeout was completed verifying correct patient, procedure, positioning, and special requirements.? The skin overlying the target points, the designated medial branch, were prepped and draped in the usual sterile fashion.? The target point was achieved with a 20-gauge 15 cm with a 10 mm curved active tip radiofrequency cannula under direct fluoroscopic visualizati on.? The needle was inserted at level L4 on the right side. Needle tip position was confirmed with lateral fluoroscopic position.? Motor stimulation was carried out at 2 Hz up to 5 volts with the absence of extremity activity.? This was repeated at level L5, S1 on right side.?? Sensory stimulation was carried out.? Concordant pain was realized at the above- mentioned sites.? Then radiofrequency lesioning was carried out times 90 seconds at 80 degrees times 2 lesions at each level.? The radiofrequency probe was removed prior to cannula removal.? The above-mentioned injectate was placed in 1 mL increments.? The needle was removed. The same procedure, with the same steps, was then completed on the left side at the same levels. Insertion sites were covered.? The patient was taken to the postoperative recovery area and monitored for an appropriate length of time before being found suitable for discharge in the company of a responsible adult. Anesthesia: Local Surgeon: Anabel Stover Pathology: none sent Condition: stable Disposition: no change
== END 2025-08-26 11:10 | disposition home or self-care (01) ==
PROVIDERS: PCP Family Medicine; Visit Provider Anesthesiology
DX: M47.816 Spondylosis without myelopathy or radiculopathy, lumbar region (principal)
CPT/HCPCS: 64635; 64636; J0665; J1010

== ENCOUNTER 2025-09-26 15:20 | Outpatient (OUT) | payer OTHER, SELFPAY ==
--- OUTSIDE RECORDS SUMMARY | 2025-09-26 15:25 | XMS_ITS | CCD ---
Author Organization [facility] Care Team Providers Care Plate Maker Zinc Name Role Phone LAKSHMIPATHY ., NARENDRANATH Admitting [...] TypeDate of OnsetReaction(s) Facility (1 source)PenicillinsDrug allergy (disorder)[id number] Repository (1 source)Penicillin; Translations: [penicillin][facility] Problems Active Problems Problem ClassificationProblemDateDocumented DateEpisodic/ChronicOther nervous system disorders (1 source)Other chronic pain; Translations: [OTHER CHRONIC PAIN]Onset: 67-32-3200JztrtlvZivlvzdpvfc; intervertebral disc disorders; other back problems (2 sources)Spondylosis without myelopathy or radiculopathy, lumbar region; Translations: [Other intervertebraldisc degeneration, lumbar region]Onset: 20-15-9137KfvcypcTiboudqrpwh; intervertebral disc disorders; other back problems (4 sources)Muscle spasm of back; Translations: [MUSCLE SPASM OF BACK]Onset: 46-74-4816AlhpnofoTdmvbzvceppq (1 source)LOW BACK PAIN, UNSPECIFIED; Translations: [LOW BACK PAIN, UNSPECIFIED] Onset: 01-07-2023 Past or Other Problems Problem ClassificationProblemDateDocumented DateEpisodic/ChronicOther connective tissue disease (4 sources)Bicipital tendinitis, left shoulder; Translations: [BICIPITAL TENDINITIS LEFT SHOULDER]Onset: 34-66-5670Xarrixfq Results Test NameValueInterpretationReference RangeFacilityOutside Recordson 08-12-2025 Outside [id number]#1.00[facility] Record[facility] 74-49-2304Ldtkcue Records [id number]#1.00[facility] Outside Recordson 65-08-1453Zfnvkqe Records [id number]#1.00[facility] Outside Recordson 54-18-6899Vaggjsp Records [id number]#1.00[facility] Outside Recordson 02-17-9463Ezlpsfb Records [id number]#1.00[facility] Outside Recordson 44-62-6993Thvmcfj Records [id number]#1.00[facility] System[facility] - Other Radiology Reporton 48-78-5700Frh - Other Radiology Report [id number]#1.00[facility] Other Lab Resultson 60-58-2882Pbq - Other Lab Results [id number]#1.00[facility] Miscellaneouson 98-95-0122Mabqublofmqmq [id number]#1.00[facility] Encounters Encounter DateEncounter TypeCare ProviderFacilityStart: 07-29-2025 End: 28-09-5424xxufekwdyeGmvnhfq Vytautas Giedraitis MDFacility:PM Ryan Start: 03-18-2025 End: 29-30-2978ifvdzbieklGoffonj Vytautas Giedraitis MDFacility:PM Ryan Start: 61-33-9954bkmczsczssDF VIGNESH P HOUSEFacility:[facility] ClinicStart: 72-03-6460vlhdtgdsspUZUJDWKAUCJN EVEMIPATHY .Facility:U1Pkzvl: 12-30-2022 End: 84-73-5930hzqtnbsgokGT PAPA Mario ECHEVARRIA .Facility:W2Efzcz: 09-23-2022 End: 19-66-0269iguxxbgupmXT PAPA S ECHEVARRIA .Facility:S6Umfrv: 06-17-2022 End: 77-77-7841bqxfavqdleYW PAPA S ECHEVARRIA .Facility:T5Djitr: 02-25-2022 End: 72-67-5754dllifgceiiNW PAPA S ECHEVARRIA .Facility: Payers DatePayer CategoryPayerPolicy [id number] Health [id number] [id number] Health [id number] [id number] .1.873092.3.57[id number] .1.557048.3.57[id number] .1.697414.3.57[id number] .1.152277.3.57[id number] 2.16.840.1.885619.3.57[id number] 2.16.840.1.475025.3.57[id number] 2.16.840.1.261019.3.57[id number] 2.16.840.1.220718.3.579.2.66789-85-0563Vyqrzdt Health [id number] [id number] Medication management note 05-31-2025 Note Date & BirjQdhiUbdfrscx75-83-1566 NoteEntered by VIGNESH PRAKASH DO on May 31, 2025 12:00:01 EDT From: VIGNESH PRAKASH DO To: [facility]/pharmacy #[id number] Sent: 05/31/2025 12:00:01 EDT Subject: Medication Management Submitted: Complete:lisinopril (lisinopril 10 mg oral tablet) Signed by VIGNESH PRAKASH DO 05/31/2025 12:00:00 EDT Approved with modifications: lisinopril (LISINOPRIL 10 MG TABLET) TAKE 1 TABLET BY MOUTH EVERY DAY Qty: 90 tab(s) Days Supply: 90 Refills: 1 Substitutions Allowed Route To Pharmacy - [facility]/pharmacy #[id number] From: [id number] To: VIGNESH PRAKASH DO Sent: May 30, 2025 11:28:24 PM CDT Subject: Medication Management Due: May 31, 2025 12:10:18 AM CDT On Hold Pending Signature Dispensed Drug: lisinopril (lisinopril 10 mg oral tablet), TAKE 1 TABLET BY MOUTH EVERY DAY Quantity: 90 tab(s) Days Supply: 90 Refills: 1 Substitutions Allowed Notes from Pharmacy: [facility] Medication management note 12-03-2024 Note Date & IjfpLzteZecdtrvy95-87-9753 NoteEntered by VIGNESH PRAKASH DO on December 03, 2024 07:35:29 EST From: VIGNESH PRAKASH DO To: [facility]/pharmacy #[id number] Sent: 12/03/2024 07:35:29 EST Subject: Medication Management Submitted: Complete:lisinopril (lisinopril 10 mg oral tablet) Signed by VIGNESH PRAKASH DO 12/03/2024 07:35:00 EST Approved lisinopril (LISINOPRIL 10 MG TABLET) TAKE 1 TABLET BY MOUTH EVERY DAY Qty: 90 tab(s) Days Supply: 90 Refills: 1 Substitutions Allowed Route To Pharmacy - [facility]/pharmacy #[id number] From: [id number] To: VIGNESH PRAKASH DO Sent: December 02, 2024 6:33:57 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 Subject: Medication Management Due: December 03, 2024 12:04:34 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 On Hold Pending Signature Dispensed Drug: lisinopril (lisinopril 10 mg oral tablet), TAKE 1 TABLET BY MOUTH EVERY DAY Quantity: 90 tab(s) Days Supply: 90 Refills: 1 Substitutions Allowed Notes from Pharmacy: [facility] Consultation note 12-30-2022 Note Date & VfwuXmiaEtewnsau04-36-0326 NoteCONSULTATION PROCEDURE DATE: 12/30/2022 PREOPERATIVE DIAGNOSIS: Right [...] will be followed up in the clinic.[facility] Consultation note 12-30-2022 Note Date & NordXpztFidhzcrr54-91-7192 NoteCONSULTATION CONSULTATION DATE: 12/30/2022 HISTORY: This is [...] otherwise indicated. Patient agrees with this plan.[facility] Consultation note 09-23-2022 Note Date & WfvkPzhtKksnsibz96-02-2414 NoteCONSULTATION CONSULTATION DATE: 09/23/2022 HISTORY OF PRESENT [...] in three months' time unless otherwise indicated.[facility] Consultation note 09-23-2022 Note Date & NmhrYsixBdasklgb53-12-0351 NoteCONSULTATION PROCEDURE DATE: 09/23/2022 PREOPERATIVE DIAGNOSIS: Left [...] 100% relief of pain. [facility] Consultation note 06-17-2022 Note Date & InfyDtukEbowyaix84-94-4528 NoteCONSULTATION PROCEDURE DATE: 06/17/2022 PREOPERATIVE DIAGNOSIS: Left [...] the procedure well with no overt complications.[facility] Consultation note 06-17-2022 Note Date & BwokUslkYxzzwufi83-85-7412 NoteCONSULTATION CONSULTATION DATE: HISTORY OF PRESENT ILLNESS: [...] in three months' time unless otherwise indicated.[facility] Consultation note 02-25-2022 Note Date & OtaxYtjrLatkqaiw17-32-7530 NoteCONSULTATION CONSULTATION DATE: 02/25/2022 This is a [...] in 3 months' time unless otherwise indicated. [facility] Signed and Approved by: SHAHID CORBIN . 03/04/2022 17:08:00[facility] Summary Purpose Family History No [...] and content) DATE CREATED AUTHOR 01/08/2023 [facility] DATE CREATED AUTHOR AUTHOR'S ORGANIZ ATION 08/03/2025 [facility] DATE CREATED AUTHOR AUTHOR'S ORGANIZ ATION 08/13/2025 [facility] FOR RECORDS PERTAINING TO PATIENTS WHO [...] BE BASED ON THE PRIMARY CLINICAL RECORDS. [facility] [employer] provides no warranty or guarantee of the accuracy or completeness of information in this document.
--- NOTE | 2025-09-26 15:45 | P.CN_ITS ---
Consult Note: HPI Data of Consult Patient: known to practice within the last 3 years Consult date: 09/26/25 Requesting Physician: Jen Goddard NP Primary Care Provider: VIGNESH PRAKASH Consult Narrative Reason for consult: f/u Narrative: Alonzo campo pleasant 44 year old male presents for evaluation of low back pain. longstanding low back pain >12 months unresponsive to > 6 weeks of heat, ice, tylenol, motrin, and PT/provider guided HEP. continues to utilize tylenol, celebrex, tramadol, and flexeril with benefit without side effects. pain today 1/10 stiff increasing to 5/10 at times, noting stiffness that improves drastically with tramadol PRN. recently underwent bilateral L4-5 L5-S1 facet RFA with 90% improvement in facet mediated low back pain, however hes concerned its wearing off as hes having increasing stiffness over the last one week. cc:: CC: Jen Goddard NP Review of Systems ROS Musculoskeletal Reports: back pain [facility] Medical History Lumbar spondylosis ?M47.816 - Spondylosis without myelopathy or radiculopathy, lumbar region (ICD-10) Meds Home Medications and Allergies Home Medications ?Medication ?Instructions ?Recorded ?Confirmed ?Type lisinopril 5 mg tablet 5 mg PO DAILY 07/08/2308/26 History diclofenac sodium 75 mg 75 mg PO BID PRN pain #60 ta bs 08/30/24 08/26/25 Rx tablet,delayed release Held on 08/12/25. Instructions: not taking naloxone 4 mg/actuation nasal 4 mg intranasal Q2M PRN opioid 08/30/24 08/26/25 Rx spray (Narcan) overdose #1 ea cyclobenzaprine 10 mg tablet 10 mg PO BID PRN muscle s pasm #60 03/04/25 08/26/25 Rx tabs celecoxib 100 mg capsule (Celebrex) 100 mg PO BID #60 caps 04/24/25 08/26/25 Rx tramadol 50 mg tablet 50 mg PO TID PRN pain #90 ta bs 04/24/25 08/26/25 Rx tramadol 50 mg tablet 50 mg PO TID PRN pain #90 ta bs 07/18/25 08/26/25 Rx cyclobenzaprine 10 mg tablet 10 mg PO BID PRN muscle s pasm #60 09/04/25 Rx tabs tramadol 50 mg tablet 50 mg PO TID PRN pain #90 ta bs 09/04/25 Rx Allergies Allergy/AdvReac Type Severity Reaction Status Date / Time Penicillins Allergy Unknown Unknown Verified 08/26/25 10:15 Exam Constitutional Documenting provider has reviewed patient's vital signs: yes Common normals: no apparent distress, oriented x3, healthy appearing, alert and well nourished General appearance: cooperative HENMT Common normals: normocephalic, hearing grossly normal bilaterally and moist oral mucous membranes Head and scalp: normocephalic Eye Common normals: PERRL Pupil: PERRL Neck & C-Spine Common normals: full ROM General: normal visual inspection Chest Common normals: inspection of chest normal Respiratory Common normals: normal respiratory effort, no retractions and no use of accessory muscles Back & Pelvis Lumbar spine/lower back: pain with ROM and straight leg raise negative bilaterally; ROM not limited and no lumbar spinal tenderness Sacroiliac joints: SI joints normal Other: sensation intact bilateral facet loading bilateral L2,3 Extremity Common normals: normal to inspection and full ROM Neuro Common normals: oriented x3 Sensorium/orientation: alert Motor exam: no movement abnormalities noted Psych Common normals: mental status grossly normal, thought process normal, cooperative, affect normal, speech normal and activity/motor behavior normal Speech: normal speech Thought process: normal thought process Results Additional Findings Additional findings: If on a controlled substance or opioids, I have checked an [place] report on this patient and there are no aberrancies noted in the prescribing history.??If on a controlled substance or opioid a drug screen was completed and reviewed within the last year, and if there has not been a drug screen completed we ordered one today to monitor higher risk, state monitored pain medication use. As part of providing excellent, safe, comprehensive care, the following was completed at our patient's visit: 1. A medication reconciliation and review to ensure accurate knowledge of current/active medications, including asking our patients to inform us about any dkry-rnk-ylbyolo medications or herbal remedies/nutritional supplements/alternative remedies. 2. A review to specifically ensure our patients have had annual screening for screening for depression, screening for tobacco use, and screening for unhealthy alcohol use. For concerning screenings had a discussion with the patient, provided patient education, and recommended follow-up with primary care provider when appropriate. If patient noted with a risk of falling, they received education on strength, gait, and balance training to prevent future risk of falling. Portions of this note may have been carried over from the previous visit and updated as appropriate. Please note this office utilizes paper charting in addition to the electronic medical record. A list of current medications, vitals, and PMH is available there as the clinical staff outside of myself do not have access to [email or web address] during the clinic day operations. As part of providing quality comprehensive care the current medications, vitals, and PMH were reviewed in the paper chart. Assessment and Plan Assessment and Plan (1) Lumbar spondylosis: Assessment and Plan: The patient has had over 3 months of moderate to severe low back pain with functional impairment and inadequate response to conservative care including NSAIDS (unless there are contraindication such as concurrent blood thinners), multiple oral or topical pain medications, and home exercise program/physical therapy.? Patient has completed >6 weeks of guided home exercise program and/or formal physical therapy program without relief of their symptoms.? The Oswestry Disability Index was completed, and the patient scored a 22%.? (2) Lumbar stenosis with neurogenic claudication: (3) Myalgia, other site: (4) Encounter for long-term use of opiate analgesic: Assessment and Plan: I feel these medications are improving the patient's quality of life and allow them to tolerate activities of daily living as well as participate in recreational activity.? The patient does not report intolerable side effects. The patient is NOT opioid naive and non-pharmacologic and non-opioid treatment has failed to significantly relieve the patient's pain and improve functionality. The patient has a diagnosis that is related to a somatic or visceral pain etiology. ? ?? I reviewed with the patient the potential risks and side effects with the use of? opioid medications including but not limited to respiratory depression,? sedation, and even . Within the last 12 months I have verified the patient has access to naloxone should? these effects occur. The patient was advised to let? their family know they had Naloxone in case they would need to administer? the medication. I advised the patient to avoid the use of any other? sedation substances including alcohol, THC, and benzodiazepines while? taking opioid medications due to the risk of compounding side effects and? detrimental outcomes. within the last 12 months I have reviewed the PHYSICAL SCIENCES INSTRUCTOR, pain treatment agreement and urine drug screen.? ?? A drug screen was completed within the last year, and no aberrancies were noted regarding their use of controlled substances. The patient understands they are subject to the terms and conditions of the pain contract that they have signed. ? ?? I have checked an [place]AR[place] report on this patient today and there are no aberrancies noted in the prescribing history.? Plan pain significantly improved post bilateral L4-5 L5-S1 RFA. i have instructed pt to continue celebrex 100mg bid prn pain and flexeril 10mg hs prn pain/spasms, pt has already decreased tramadol use and has sparingly utilized since his lumbar RFA. at this time if needed pt can take tramadol 50mg TID PRN for moderate to severe pain, refill as needed. f/u 3 months, sooner if needed
== END 2025-09-26 15:21 | disposition home or self-care (01) ==
LOC: PM 15:21
PROVIDERS: PCP Family Medicine; Visit Provider Nurse Practitioner
DX: M47.816 Spondylosis without myelopathy or radiculopathy, lumbar region (principal); M48.062 Spinal stenosis, lumbar region with neurogenic claudication; M79.18 Myalgia, other site; Z79.891 Long term (current) use of opiate analgesic
CPT/HCPCS: G0463